=== PATIENT | male | born 1945 | race Caucasian/White ===

== ENCOUNTER → 2017-10-27 08:00 | Day surgery (SDC) | payer MEDICARE, OTHER, SELFPAY ==
[2017-10-27] VITALS (8 sets, daily range): BP systolic 105–123; BP diastolic 40–72; PULSE 52–57; RESP 14–16; TEMP 36.2–36.3; O2SAT 95–97; BMI 36.5
[2017-10-27] MEDS: SODIUM CHLORIDE 0.9% 1,000 ML 200 ML IV (09:10)
--- NOTE | 2017-10-27 09:37 | PM.HP.1 ---
History of Present Illness Chief complaint: colonoscopy [id number] Narrative: Ferdinand Schneider is a 71 year old male who presents today for a screening colonoscopy. He denies any problems or symptoms related to the function of his GI tract. He reports he needs a colonoscopy as part of a health maintenance program [facility] Surgical History History of tonsillectomy Social History household members: spouse Meds Home Medications Medication Instructions Recorded Confirmed Type amlodipine [Norvasc] 5 mg PO QDAY #0 11/05/10 10/27/17 History hydrochlorothiazide 25 mg PO QDAY #0 11/05/10 10/27/17 History Dulcolax Stool Softener (dss) mg PO DAILY PRN 10/27/17 History Fish Oil 500 mg PO DAILY 10/27/17 10/27/17 History Multi Vitamin mg PO DAILY 10/27/17 History aspirin 81 mg PO DAILY 10/27/17 10/27/17 History atorvastatin 40 mg PO DAILY 10/27/17 10/27/17 History oxybutynin chloride 5 mg PO DAILY 10/27/17 10/27/17 History terazosin 19 mg PO DAILY 10/27/17 10/27/17 History Generic Name Dose Route Start Last Admin Trade Name Freq PRN Reason Stop Dose Admin Sodium Chloride 1,000 mls @ 200 mls/hr 10/27/17 09:45 Normal Saline 0.9% IV CONT CHRISTOPHER Review of Systems Review of Systems All systems reviewed & are unremarkable except as noted in HPI and below Exam Vital Signs (past 8 hours): Vital Signs - 8 hr 10/27/17 08:18 Temperature 97.4 F L Pulse Rate 57 L Respiratory Rate 16 Blood Pressure 123/68 H Pulse Oximetry 96 Pulse Oximetry 96 Oxygen Delivery Method Room Air Narrative Exam Narrative: Very well nourished and well developed man in no distress HEENT: NCAT, PERRLA, EOMI Lungs: clear bilaterally CV: regular rate and rhythm Abd:soft, active bowel sounds Ext: warm and well perfused Assessment & Plan Plan: Plan: Very pleasant gentleman here for a screening colonoscopy. We have discussed the risks and benefits of the procedure and he has expressed a desire to continue
--- NOTE | 2017-10-27 09:42 | P.HP_ITS ---
History of Present Illness Chief complaint: colonoscopy [id number] Narrative: Ferdinand Schneider is a 71 year old male who presents today for a screening colonoscopy. He denies any problems or symptoms related to the function of his GI tract. He reports he needs a colonoscopy as part of a health maintenance program [facility] Surgical History History of tonsillectomy Social History household members: spouse Meds Home Medications Medication Instructions Recorded Confirmed Type amlodipine [Norvasc] 5 mg PO QDAY #0 11/05/10 10/27/17 History hydrochlorothiazide 25 mg PO QDAY #0 11/05/10 10/27/17 History Dulcolax Stool Softener (dss) mg PO DAILY PRN 10/27/17 History Fish Oil 500 mg PO DAILY 10/27/17 10/27/17 History Multi Vitamin mg PO DAILY 10/27/17 History aspirin 81 mg PO DAILY 10/27/17 10/27/17 History atorvastatin 40 mg PO DAILY 10/27/17 10/27/17 History oxybutynin chloride 5 mg PO DAILY 10/27/17 10/27/17 History terazosin 19 mg PO DAILY 10/27/17 10/27/17 History Generic Name Dose Route Start Last Admin Trade Name Freq PRN Reason Stop Dose Admin Sodium Chloride 1,000 mls @ 200 mls/hr 10/27/17 09:45 Normal Saline 0.9% IV CONT CHRISTOPHER Review of Systems Review of Systems All systems reviewed & are unremarkable except as noted in HPI and below Exam Vital Signs (past 8 hours): Vital Signs - 8 hr 3 10/27/17 08:18 Temperature 97.4 F L Pulse Rate 57 L Respiratory Rate 16 Blood Pressure 123/68 H Pulse Oximetry 96 Pulse Oximetry 96 Oxygen Delivery Method Room Air Narrative Exam Narrative: Very well nourished and well developed man in no distress HEENT: NCAT, PERRLA, EOMI Lungs: clear bilaterally CV: regular rate and rhythm Abd:soft, active bowel sounds Ext: warm and well perfused Assessment & Plan Plan: Plan: Very pleasant gentleman here for a screening colonoscopy. We have discussed the risks and benefits of the procedure and he has expressed a desire to continue
[2017-10-27] MEDS: fentaNYL 250 MCG/5 ML INJ IV (10:07)
[2017-10-27] MEDS: MIDAZOLAM 5 MG/5 ML VIAL IV (10:09)
--- NOTE | 2017-10-27 10:21 | P.OP_ITS ---
Operative Date/Time/Diagnoses - Date of procedure: 10/27/17 Time of procedure: 10:16 Pre-op diagnosis: Screening Post-op diagnosis: same Procedure & Clinicians Procedure: Colonoscopy to the cecum Same procedure as scheduled: Yes Indications: Last colonoscopy prior [facility] 10 years ago Surgeon: Paulina Dunne Anesthesia Type: Sedation (Versed 6 mg; fentanyl 200 mcg) Operative Notes Findings: 1. Very poor prep-solid and particulate matter throughout the colon 2. No obvious polyps or mass lesions 3. Diverticulosis affecting the sigmoid region 4. Very limited examination due to prep quality Closure Type: not applicable Specimen(s): none sent Procedure in detail: After obtaining informed consent, the patient was brought to the GI suite and placed in the left lateral decubitus position on the examination table. After placement of appropriate monitors, the patient was given incremental doses of Versed and Fentanyl until an appropriate level of sedation was achieved. A time out was held per SCOAP protocol. A digital rectal examination was performed and did not reveal any masses or obstructing lesions. The colonoscope was gently passed into the patient's anus and the entire colon navigated to the level of the cecum with minimal difficulty. Entering the colon, we immediately noted a very poor prep. The colon was filled with a mixture of solid particulate matter. Once in the cecum , the scope was withdrawn being sure to go before and beyond all mucosal folds and prominences and get the most adequate examination allowed considering prep quality. A large volume of irrigation fluid was used to try and remove some of the particulate matter with very limited success. The scope was obstructed multiple times with inability to either visualize the mucosa or aspirate aspirate the contents to improve the view. The findings are noted above. The scope was straightened and air aspirated from the colon. The instrument was removed from the patient's body and the procedure was concluded. The patient was allowed to awaken from sedation without difficulty and taken to the post-anesthesia care unit in good condition. Complications: none (Very limited examination due to poor prep quality) Condition: stable Disposition: PACU Plan for aftercare: 1. Discharged to home 2. Plan for next colonoscopy in 1-3 years due to the very poor quality of the prep. Serious consideration should be given to stacked preps for the next planned procedure
== END | disposition home or self-care (01) ==
PROVIDERS: Family Provider Internal Medicine; PCP Internal Medicine; Visit Provider Surgery
PROC: 0DJD8ZZ Inspection of Lower Intestinal Tract, Via Natural or Artificial Opening Endoscopic (ICD-10-PCS; CPT 45378; principal; 2017-10-27 08:45)
DX: Z12.11 Encounter for screening for malignant neoplasm of colon (principal); K57.30 Diverticulosis of large intestine without perforation or abscess without bleeding
CPT/HCPCS: G0121; J2250; J3010

== ENCOUNTER → 2018-01-24 07:51 | Outpatient (CLI) | payer MEDICARE, OTHER, SELFPAY ==
[2018-01-24 09:21] LABS: Aspartate Aminotransferase 21 IU/L (17-59); BUN Creatinine Ratio 22.2 (6-22); Blood Urea Nitrogen 20 mg/dL (9-20); Calcium 9.4 mg/dL (8.4-10.2); Carbon Dioxide 27 mmol/L (22-32); Chloride 101 mmol/L (98-107); Cholesterol 168 mg/dL (140-199); Estimated Glomerular Filt Rate > 60.0 mL/min (>60); Glucose 118 mg/dL (80-110); HDL Cholesterol 37 mg/dL (40-60); HEMOLYSIS < 15 (0-50); LDL Cholesterol Calculated 104 mg/dL (<100); Potassium 3.9 mmol/L (3.4-5.1); Sodium 137 mmol/L (137-145); Triglycerides 136 mg/dL (35-150)
== END ==
PROVIDERS: Family Provider Internal Medicine; PCP Internal Medicine; Visit Provider Internal Medicine
DX: E78.00 Pure hypercholesterolemia, unspecified (principal); I10 Essential (primary) hypertension; N40.0 Benign prostatic hyperplasia without lower urinary tract symptoms
CPT/HCPCS: 36415; 80048; 80061; 84153; 84450

== ENCOUNTER → 2018-05-30 14:13 | Outpatient (REF) | payer MEDICARE, OTHER, SELFPAY | LOC: LAB 14:13 | PROVIDERS: Family Provider Internal Medicine; PCP Internal Medicine; Visit Provider Internal Medicine | DX: B35.1 Tinea unguium (principal) | CPT/HCPCS: 87077; 87102 ==

== ENCOUNTER 2018-06-30 04:52 | Emergency (ER) | payer MEDICARE, OTHER, SELFPAY ==
[2018-06-30 05:00] VITALS: BP 163/73; PULSE 76; RESP 20; TEMP 36.4; O2SAT 96; BMI 35.4
[2018-06-30] MEDS: PHENAZOPYRIDINE 100 MG PREPACK 1 BOTTLE MISC (05:37)
[2018-06-30 06:03] VITALS: BP 129/65; PULSE 60; RESP 18; O2SAT 98
--- NOTE | 2018-06-30 06:06 | PC.NURSE ---
His watters is draining wine colored drainage without clots.
--- NOTE | 2018-06-30 16:33 | ED_ITS ---
HPI - Male Genitourinary General Chief complaint: Urogenital-Male Stated complaint: has procedure yesterday, unable to urinate pain Time Seen by Provider: 06/30/18 04:56 Source: patient and family Mode of arrival: ambulatory Limitations: no limitations History of Present Illness HPI Narrative: Patient comes to the emergency department complaining of urinary retention. He states he had an outpatient urologic procedure today which his daughter describes as a uro lift , in which she states a titanium clips were used to pull the prostate back away from the bladder. The procedure was apparently trans urethral. The patient states he has had pain with urination all day, and his Vicodin is not helping. He states that he was passing some clots and that he was given straight caths to use if needed, but that he has not used them yet. Patient states that around 2100, he stopped being able to urinate on his own, and has had increasing bladder discomfort since. He states that when he tries to urinate, the discomfort is actually in his urethral area. Patient has had some mild hematuria with mild clotting. He denies any fever, nausea, lightheadedness, or any other complaints. He states that other than his bladder discomfort from being full, he has not had any abdominal pain. He is scheduled to see his urologist for recheck later this morning. The patient states his pain is 8/10. Nothing makes better or worse. Related Data Home Medications Medication Instructions Recorded Confirmed amlodipine [Norvasc] 5 mg PO QDAY #0 11/05/10 10/27/17 hydrochlorothiazide 25 mg PO QDAY #0 11/05/10 10/27/17 Dulcolax Stool Softener (dss) mg PO DAILY PRN 10/27/17 Fish Oil 500 mg PO DAILY 10/27/17 10/27/17 Multi Vitamin mg PO DAILY 10/27/17 aspirin 81 mg PO DAILY 10/27/17 10/27/17 atorvastatin 40 mg PO DAILY 10/27/17 10/27/17 oxybutynin chloride 5 mg PO DAILY 10/27/17 10/27/17 terazosin 19 mg PO DAILY 10/27/17 10/27/17 Allergies Allergy/AdvReac Type Severity Reaction Status Date / Time No Known Drug Allergies Allergy Verified 06/30/18 05:29 Review of Systems Review of Systems ROS Unobtainable: All systems reviewed & are unremarkable except as noted in HPI and below Constitutional Denies chills, Denies fever(s), Denies lethargy and Denies weakness Eyes Denies change in vision, Denies eye discharge, Denies irritation and Denies loss of vision ENT Ears, Nose, Mouth, and Throat: Denies change in voice, Denies neck pain and Denies sore throat Cardiovascular Denies chest pain, Denies irregular heart rhythm, Denies lightheadedness, Denies palpitations, Denies dyspnea, Denies dyspnea on exertion and Denies orthopnea Respiratory Denies cough, Denies dyspnea, Denies dyspnea on exertion and Denies wheezing Gastrointestinal Gastrointestinal: Denies abdominal pain, Denies change in bowel habits, Denies diarrhea, Denies nausea and Denies vomiting Genitourinary Denies hematuria, Denies flank pain, Denies urinary incontinence and Denies urinary urgency Musculoskeletal Denies neck pain Integumentary/Breasts Denies pruritus, Denies erythema, Denies rash and Denies wounds Neurologic Denies confusion, Denies loss of vision and Denies weakness Psychiatric Denies anxiety, Denies confusion, Denies depression, Denies homicidal ideation and Denies suicidal ideation Endocrine Denies palpitations Hematologic/Lymphatic Denies easy bruising Allergic/Immunologic Denies wheezing [facility] Medical History Acute retention of urine (Acute) Surgical History History of tonsillectomy Social History household members: spouse Smoking Status: Never smoker Comment: Under surgical history, trans urethral Uro lift. Exam Initial Vital Signs Initial Vital Signs: Vital Signs Temperature 97.6 F 06/30/18 05:00 Pulse Rate 76 06/30/18 05:00 Respiratory Rate 20 06/30/18 05:00 Blood Pressure 163/73 H 06/30/18 05:00 Pulse Oximetry 96 06/30/18 05:00 Course Course Narrative: Bladder scan showed patient to have 550 cc of urine in his bladder. The patient stated he prefer the idea of an indwelling catheter over straight cath, which I feel is also best. Indwelling Paniagua was placed, and I discussed with the patient and his daughter, who is a nurse, that if the tubing gets clogged with any clots, they can flush the catheter. Patient should keep the catheter in until he sees his urologist later this morning, and a plan can be devised at that time. Orders Ordered: Discontinued Medications Phenazopyridine HCl (Pyridium) 200 mg PO NOW ONE Stop: 06/30/18 05:26 Phenazopyridine HCl (Pyridium 100mg Prepack) 1 bottle MISC SEEINSTR ONE Stop: 06/30/18 05:32 Last Admin: 06/30/18 05:37 Dose: 1 bottle MDM - Male Genitourinary Medical Records Attestation: I reviewed the patient's medical records. Discharge Plan Departure Patient Disposition: Home Clinical Impression: Acute retention of urine Discharge Date/Time: 06/30/18 06:07 Interventions: ED Discharge Assessment Last Done: 06/30/18 06:03 Instructions: DI for Urinary Retention in Men Activity Restrictions/Additional Instructions: Please follow up for your appointment with your urologist today, as scheduled. Prescriptions: No Action amlodipine [Norvasc] 5 MG tablet 5 mg PO QDAY Qty: 0 RF: 0 hydrochlorothiazide 25 MG tablet 25 mg PO QDAY Qty: 0 RF: 0 Dulcolax Stool Softener (dss) PO DAILY PRN (Reason: Constipation) RF: 0 Fish Oil 500 mg PO DAILY RF: 0 Multi Vitamin PO DAILY RF: 0 aspirin 81 mg PO DAILY RF: 0 atorvastatin 40 mg PO DAILY RF: 0 oxybutynin chloride 5 mg PO DAILY RF: 0 terazosin 19 mg PO DAILY RF: 0
== END 2018-06-30 06:07 | disposition home or self-care (01) ==
PROVIDERS: Emergency Provider Emergency Medicine; Family Provider Internal Medicine; PCP Internal Medicine
DX: R33.9 Retention of urine, unspecified (principal)
CPT/HCPCS: 51701; 51798; 99283

== ENCOUNTER 2018-06-30 14:57 | Emergency (ER) | payer MEDICARE, OTHER, SELFPAY ==
[2018-06-30 15:05] VITALS: BP 163/70; PULSE 82; RESP 16; TEMP 36.5; O2SAT 98; BMI 35.4
--- NOTE | 2018-06-30 15:38 | ED.MALEGU ---
HPI - Male Genitourinary General Chief complaint: Urogenital-Male Stated complaint: PLUGGED CATH Time Seen by Provider: 06/30/18 15:06 Source: patient and family Mode of arrival: ambulatory Limitations: no limitations History of Present Illness HPI Narrative: 72-year-old male with hypertension and hyperlipidemia as well as prostate trouble returns to the emergency department for evaluation of a problem with his Paniagua catheter. He presents with his daughter who is a nurse. Just yesterday the patient had a urologic procedure and was discharged without a catheter. He presented last evening with difficulty to urinate and a bladder scan noting over 500 mL in the bladder. He had a Paniagua catheter placed and was discharged home. He had an appointment with his urologist today and all was well. Over the course of the day they have noticed a decreased amount of urine out the Paniagua catheter. There has been passage of small clots. The patient is not dizzy nor weak or lightheaded. He denies fever or chills. He denies any significant pain. Onset (ago): hour(s) Duration: constant Related Data Home Medications Medication Instructions Recorded Confirmed amlodipine [Norvasc] 5 mg PO QDAY #0 11/05/10 10/27/17 hydrochlorothiazide 25 mg PO QDAY #0 11/05/10 10/27/17 Dulcolax Stool Softener (dss) mg PO DAILY PRN 10/27/17 Fish Oil 500 mg PO DAILY 10/27/17 10/27/17 Multi Vitamin mg PO DAILY 10/27/17 aspirin 81 mg PO DAILY 10/27/17 10/27/17 atorvastatin 40 mg PO DAILY 10/27/17 10/27/17 oxybutynin chloride 5 mg PO DAILY 10/27/17 10/27/17 terazosin 19 mg PO DAILY 10/27/17 10/27/17 Allergies Allergy/AdvReac Type Severity Reaction Status Date / Time No Known Drug Allergies Allergy Verified 06/30/18 05:29 Review of Systems Constitutional Denies chills, Denies fever(s), Denies lethargy and Denies weakness Eyes Denies change in vision, Denies eye discharge, Denies irritation and Denies loss of vision ENT Ears, Nose, Mouth, and Throat: Denies change in voice, Denies neck pain and Denies sore throat Cardiovascular Denies chest pain, Denies irregular heart rhythm, Denies lightheadedness, Denies palpitations, Denies dyspnea, Denies dyspnea on exertion and Denies orthopnea Respiratory Denies cough, Denies dyspnea, Denies dyspnea on exertion and Denies wheezing Gastrointestinal Gastrointestinal: Denies abdominal pain, Denies change in bowel habits, Denies diarrhea, Denies nausea and Denies vomiting Genitourinary Denies hematuria, Denies flank pain, Denies urinary incontinence and Denies urinary urgency Comments: Paniagua catheter problem Musculoskeletal Denies neck pain Integumentary/Breasts Denies pruritus, Denies erythema, Denies rash and Denies wounds Neurologic Denies confusion, Denies loss of vision and Denies weakness Psychiatric Denies anxiety, Denies confusion, Denies depression, Denies homicidal ideation and Denies suicidal ideation Endocrine Denies palpitations Hematologic/Lymphatic Denies easy bruising Allergic/Immunologic Denies wheezing [facility] Medical History Acute retention of urine (Acute) Surgical History History of tonsillectomy Social History household members: spouse Smoking Status: Never smoker Exam Narrative Exam Narrative: GEN: AOx3 and in mild distress EYES: Pupils are equal, round, and reactive to light and accommodation. Extraoccular muscles are intact bilaterally. There is no subconjunctival hemorrhage or exudate. CHEST: Lungs are clear to auscultation bilaterally and free of wheezes, rales, or rhonchi. Heart rate is regular rhythm, there are no murmurs, clicks, rubs, or gallops. There is no chest wall tenderness. ABD: Abdomen is soft and nontender. There is no guarding or rebound. Bowel sounds are normal in all 4 quadrants. There is no mass or organomegaly. EXT: Full painless ROM of all extremities with no loss of sensation or strength. : Paniagua catheter in place, blood tinged urine in the Paniagua. SKIN: Warm, pink, and dry. No erythema or rash Initial Vital Signs Initial Vital Signs: Vital Signs Temperature 97.7 F 06/30/18 15:05 Pulse Rate 82 06/30/18 15:05 Respiratory Rate 16 06/30/18 15:05 Blood Pressure 163/70 H 06/30/18 15:05 Pulse Oximetry 98 06/30/18 15:05 Course Reevaluation(s) Reevaluation #1: Nursing flushed the catheter and promptly had a few clots passed through the Paniagua and started draining. Patient tolerated procedure well Vital Signs - 8 hr 06/30/18 15:05 Temperature 97.7 F Pulse Rate 82 Respiratory Rate 16 Blood Pressure 163/70 H Pulse Oximetry 98 Discharge Plan Departure Patient Disposition: Home Clinical Impression: Paniagua catheter problem Discharge Date/Time: 06/30/18 16:08 Interventions: ED Discharge Assessment Last Done: 06/30/18 16:03 Instructions: How to Care for Your Paniagua Catheter -- Male Activity Restrictions/Additional Instructions: *You have been diagnosed with [ Paniagua catheter problem ] *What to do: * continue to take medications as directed *Follow up with your primary care provider in 2-3 days, call for an appointment. Let them know you were seen in the Emergency Department and that we ask that you be seen in follow up *Return to ER if you should have any new, worsening or concerning symptoms Prescriptions: No Action amlodipine [Norvasc] 5 MG tablet 5 mg PO QDAY Qty: 0 RF: 0 hydrochlorothiazide 25 MG tablet 25 mg PO QDAY Qty: 0 RF: 0 Dulcolax Stool Softener (dss) PO DAILY PRN (Reason: Constipation) RF: 0 Fish Oil 500 mg PO DAILY RF: 0 Multi Vitamin PO DAILY RF: 0 aspirin 81 mg PO DAILY RF: 0 atorvastatin 40 mg PO DAILY RF: 0 oxybutynin chloride 5 mg PO DAILY RF: 0 terazosin 19 mg PO DAILY RF: 0
== END 2018-06-30 16:08 | disposition home or self-care (01) ==
PROVIDERS: Emergency Provider Emergency Medicine; Family Provider Internal Medicine; PCP Internal Medicine
DX: T83.091A Other mechanical complication of indwelling urethral catheter, initial encounter (principal)
CPT/HCPCS: 51700; 51701; 51798; 99283; 99284

== ENCOUNTER 2018-07-01 21:32 | Emergency (ER) | payer MEDICARE, OTHER, SELFPAY ==
[2018-07-01 22:17] VITALS: BP 158/71; PULSE 61; RESP 18; TEMP 36.2; O2SAT 98; BMI 35.4
--- NOTE | 2018-07-01 22:34 | ED.MALEGU ---
HPI - Male Genitourinary General Chief complaint: Urogenital-Male Stated complaint: cath is blocked Time Seen by Provider: 07/01/18 22:21 Source: patient Mode of arrival: ambulatory Limitations: no limitations History of Present Illness HPI Narrative: patient is a 72-year-old male who presents with catheter problem he had a Paniagua catheter placed yesterday after a prostate procedure. This evening he noticed he was having increased abdominal pain is decreased urine output. He did have some urine leakage around the Paniagua. The of the nurse has already unclog it and got an old is all blood clots removed from the catheter. Urine is yellow and clear no hematuria. He has not had any fever. He has appointment with Urology next week. Related Data Home Medications Medication Instructions Recorded Confirmed amlodipine [Norvasc] 5 mg PO QDAY #0 11/05/10 10/27/17 hydrochlorothiazide 25 mg PO QDAY #0 11/05/10 10/27/17 Dulcolax Stool Softener (dss) mg PO DAILY PRN 10/27/17 Fish Oil 500 mg PO DAILY 10/27/17 10/27/17 Multi Vitamin mg PO DAILY 10/27/17 aspirin 81 mg PO DAILY 10/27/17 10/27/17 atorvastatin 40 mg PO DAILY 10/27/17 10/27/17 oxybutynin chloride 5 mg PO DAILY 10/27/17 10/27/17 terazosin 19 mg PO DAILY 10/27/17 10/27/17 Allergies Allergy/AdvReac Type Severity Reaction Status Date / Time No Known Drug Allergies Allergy Verified 06/30/18 05:29 Review of Systems Review of Systems GENERAL: Denies chills,fever HEENT: Denies throat pain RESPIRATORY: Denies dyspnea, cough, wheezing CARDIOVASCULAR: Denies chest pain, palpitations : See HPI GASTROINTESTINAL: Denies nausea, vomiting MUSCULOSKELETAL: Denies extremity pain, injury SKIN: No rash, no laceration, no pruritus NEUROLOGIC: Denies weakness, dizziness, headache, numbness 8 point review of systems is negative except for those stated above and HPI PFSH Medical History Acute retention of urine (Acute) Hyperlipidemia (Acute) Hypertension (Acute) Surgical History History of tonsillectomy Social History household members: spouse Smoking Status: Never smoker Exam Initial Vital Signs Initial Vital Signs: Vital Signs Temperature 97.2 F L 07/01/18 22:17 Pulse Rate 61 07/01/18 22:17 Respiratory Rate 18 07/01/18 22:17 Blood Pressure 158/71 H 07/01/18 22:17 Pulse Oximetry 98 07/01/18 22:17 GENERAL: alert male no acute distress CARDIOVASCULAR: peripheral pulses in tact, cap refill <2 sec RESPIRATORY: No respiratory distress, speaks in full sentences without difficulty ABDOMEN: Soft, nontender, no guarding or rebound : Paniagua in place tube is clear yellow urine EXTREMITIES: Normal range of motion, no clubbing or edema. Neurovascularly intact NEUROLOGICAL: Cranial nerves II through XII grossly intact. Normal gait and speech. SKIN: Warm, dry, no petechiae, no rashes or lesions. Course Vital Signs - 8 hr 07/01/18 22:17 Temperature 97.2 F L Pulse Rate 61 Respiratory Rate 18 Blood Pressure 158/71 H Pulse Oximetry 98 Discharge Plan Departure Patient Disposition: Home Clinical Impression: Paniagua catheter problem Discharge Date/Time: 07/01/18 22:42 Interventions: ED Discharge Assessment Last Done: 07/01/18 22:42 Instructions: How to Care for Your Paniagua Catheter -- Male Activity Restrictions/Additional Instructions: *You have been diagnosed with Paniagua catheter problem *What to do: may flush out at home. If unable to flush and clear Paniagua catheter than return to ED. *Continue to take medications as directed *Follow up with your primary care provider in 2-3 days, Follow up with Urology as previously arranged for next week *Return to ER if you should have gross blood in the Paniagua catheter tube, unable to fix Paniagua catheter at home, increased abdominal pain [or] any new, worsening or concerning symptoms Prescriptions: No Action amlodipine [Norvasc] 5 MG tablet 5 mg PO QDAY Qty: 0 RF: 0 hydrochlorothiazide 25 MG tablet 25 mg PO QDAY Qty: 0 RF: 0 Dulcolax Stool Softener (dss) PO DAILY PRN (Reason: Constipation) RF: 0 Fish Oil 500 mg PO DAILY RF: 0 Multi Vitamin PO DAILY RF: 0 aspirin 81 mg PO DAILY RF: 0 atorvastatin 40 mg PO DAILY RF: 0 oxybutynin chloride 5 mg PO DAILY RF: 0 terazosin 19 mg PO DAILY RF: 0 Referrals: Ezio Hallman MD [Primary Care Provider] -
--- NOTE | 2018-07-01 22:41 | PC.NURSE ---
Pt bladder irrigated on arrival and easily flushed out multiple small brownish clots. No ray blood. pt had 250 out.
== END 2018-07-01 22:42 | disposition home or self-care (01) ==
PROVIDERS: Emergency Provider Emergency Medicine; Family Provider Internal Medicine; PCP Internal Medicine
DX: T83.091A Other mechanical complication of indwelling urethral catheter, initial encounter (principal)
CPT/HCPCS: 99282

== ENCOUNTER 2020-03-16 18:21 | Emergency (ER) | payer MEDICARE, OTHER, SELFPAY ==
[2020-03-16 18:27] VITALS: BP 195/84; PULSE 69; RESP 16; TEMP 36.8; O2SAT 98
--- NOTE | 2020-03-16 18:43 | ED_ITS ---
HPI - Wound/Laceration <VILLA De Dios - Last Filed: 03/16/20 20:16> General Chief Complaint: Wound/Laceration Stated Complaint: Cut Right Thumb Time Seen by Provider: 03/16/20 18:22 Source: patient Mode of arrival: Ambulatory History of Present Illness HPI narrative: 74yo male presents to the ED for a laceration to his right thumb. He states he was attempting to cut a care in the next slipped and he cut his thumb. He is unsure of his last Tdap. He denies any other injuries, able to move his thumb without any difficulty. Patient denies any other injury, fevers, chills, nausea, vomiting, diarrhea, or other concerns. Related Data Home Medications Medication Instructions Recorded Confirmed amlodipine [Norvasc] 5 mg PO QDAY #0 11/05/10 10/27/17 hydrochlorothiazide 25 mg PO QDAY #0 11/05/10 10/27/17 Dulcolax Stool Softener (dss) mg PO DAILY PRN 10/27/17 Fish Oil 500 mg PO DAILY 10/27/17 10/27/17 Multi Vitamin mg PO DAILY 10/27/17 aspirin 81 mg PO DAILY 10/27/17 10/27/17 atorvastatin 40 mg PO DAILY 10/27/17 10/27/17 oxybutynin chloride 5 mg PO DAILY 10/27/17 10/27/17 terazosin 19 mg PO DAILY 10/27/17 10/27/17 Allergies Allergy/AdvReac Type Severity Reaction Status Date / Time No Known Drug Allergies Allergy Verified 06/30/18 05:29 Review of Systems <VILLA De Dios - Last Filed: 03/16/20 20:16> Review of Systems Narrative: REVIEW OF SYSTEMS: GENERAL: Denies fever or chills. HENT: Denies head trauma. EYE: Denies double vision or vision loss. CARDIOVASCULAR: Denies syncope. MUSCULOSKELETAL: Denies weakness, or deformities. INTEGUMENTARY: Complains of right thumb laceration, see HPI. NEURO: Denies numbness or tingling. Patient History <VILLA De Dios - Last Filed: 03/16/20 20:16> Medical History Acute retention of urine (Inactive) Hyperlipidemia (Acute) Hypertension (Acute) Surgical History History of tonsillectomy Social History household members: spouse Smoking Status: Never smoker Smoking Status: Never smoker alcohol intake frequency: a few times a month Substance Use Type: does not use Exam <VILLA De Dios - Last Filed: 03/16/20 20:16> Initial Vital Signs Initial Vital Signs: Vital Signs Temperature 98.2 F 03/16/20 18:27 Pulse Rate 69 03/16/20 18:27 Respiratory Rate 16 03/16/20 18:27 Blood Pressure 195/84 H 03/16/20 18:27 Pulse Oximetry 98 03/16/20 18:27 PHYSICAL EXAMINATION: GENERAL: Well groomed, alert, and cooperative. Answers questions promptly and appropriately. Vital signs noted. HENT: Normocephalic, atraumatic. RESPIRATORY: Normal respiratory rate, trachea midline, airway patent. No stridor, nasal flaring or accessory muscle use. MUSCULOSKELETAL: Normal gait and coordination. Equal tone and mass bilaterally. EXTREMITIES: CMS intact. Moves all extremities. SKIN: Warm, dry, soft, appropriate color for ethnicity. There is a 8 cm laceration noted to right tip of thumb starting at the nail edge and extending down towards the DIP joint. Full range of motion of thumb against resistance, no visualized tendons, no visualized foreign bodies. Laceration appears to be more like a flap. Sutures in place, see procedure note. NEURO: Alert and Oriented X 3. Good coordination. PSYCH: Appropriate affect and mood. <Zach Lee DO - Last Filed: 03/17/20 03:48> Initial Vital Signs Initial Vital Signs: Vital Signs Temperature 98.2 F 03/16/20 18:27 Pulse Rate 69 03/16/20 18:27 Respiratory Rate 16 03/16/20 18:27 Blood Pressure 195/84 H 03/16/20 18:27 Pulse Oximetry 98 03/16/20 18:27 Procedures <VILLA De Dios - Last Filed: 03/16/20 20:16> Laceration Repair Laceration 1: Site: upper extremity Side (If applicable): right Size (cm): 8 Description: linear Depth: simple, single layer Local Anesthetic: lidocaine 1% and with bicarb Amount of anesthesia used (mL): 8 Skin layer closed with: nylon Course <VILLA De Dios - Last Filed: 03/16/20 20:16> Course Course Narrative: Tdap updated. Patient tolerated procedure well, wound irrigated extensively with NS. Orders Ordered: Discontinued Medications Bacitracin (Bacitracin) 1 applic TOP NOW ONE Stop: 03/16/20 19:17 Last Admin: 03/16/20 19:30 Dose: 1 applic Documented by: KELVIN Diphtheria/Tetanus/Acell Pertussis (Adacel) 0.5 ml IM .ONCE ONE Stop: 03/16/20 18:41 Last Admin: 03/16/20 18:45 Dose: 0.5 ml Documented by: BRITNEY Lidocaine/Sodium Bicarbonate (Buffered Lidocaine 10 Ml Syr) 10 ml INJ NOW ONE Stop: 03/16/20 18:41 Last Admin: 03/16/20 18:45 Dose: 10 ml Documented by: BRITNEY Vital Signs Vital signs: Vital Signs - 8 hr 03/16/20 18:27 03/16/20 19:34 Temperature 98.2 F Pulse Rate 69 72 Respiratory Rate 16 18 Blood Pressure 195/84 H 174/81 H Pulse Oximetry 98 97 <Zach Lee DO - Last Filed: 03/17/20 03:48> Orders Ordered: Discontinued Medications Bacitracin (Bacitracin) 1 applic TOP NOW ONE Stop: 03/16/20 19:17 Last Admin: 03/16/20 19:30 Dose: 1 applic Documented by: KELVIN Diphtheria/Tetanus/Acell Pertussis (Adacel) 0.5 ml IM .ONCE ONE Stop: 03/16/20 18:41 Last Admin: 03/16/20 18:45 Dose: 0.5 ml Documented by: BRITNEY Lidocaine/Sodium Bicarbonate (Buffered Lidocaine 10 Ml Syr) 10 ml INJ NOW ONE Stop: 03/16/20 18:41 Last Admin: 03/16/20 18:45 Dose: 10 ml Documented by: BRITNEY Vital Signs Vital signs: Vital Signs - 8 hr 03/16/20 18:27 03/16/20 19:34 Temperature 98.2 F Pulse Rate 69 72 Respiratory Rate 16 18 Blood Pressure 195/84 H 174/81 H Pulse Oximetry 98 97 MDM - Wound/Laceration <HOLLY De DiosP - Last Filed: 03/16/20 20:16> Medical Records Attestation: I reviewed the patient's medical records. Lab Data Attestation: I reviewed the patient's lab results. [facility] Narrative Medical decision making narrative: History and examination reveal simple laceration requiring sutures. Patient tolerated sutures well, flap is well approximated. Patient's Tdap was updated. No signs of infection. No concerns for tendon involvement due to location of laceration and strength against resistance. No nail involvement. Patient was counseled about signs of infection, care for wound, and suture removal. He agrees to plan of care verbalized understanding. Discharge Plan Departure Patient Disposition: Home Clinical Impression: Laceration Discharge Date/Time: 03/16/20 19:35 Instructions: DI for Laceration Repair Activity Restrictions/Additional Instructions: Thank you for entrusting me with your care today. As discussed, your laceration was repaired with 9 sutures. These will need to be removed in approximately 10 days. Do not soak your hand in any water including dishwater. Leave the bandage in place for the next 24 hours, after that you may remove the bandage and wash the area gently with soap and water. No foreign bodies were found in your wound today. While there is low-risk for infection at this time, retained foreign bodies and infection are always possible with any cut or break in the skin. Please monitor the wound closely and be re-evaluated immediately if you develop any signs of infection such as pus, increasing redness, increasing pain, fevers, or any other concerns. Your Tdap was updated today. Prescriptions: No Action amlodipine [Norvasc] 5 MG tablet 5 mg PO QDAY Qty: 0 RF: 0 hydrochlorothiazide 25 MG tablet 25 mg PO QDAY Qty: 0 RF: 0 Dulcolax Stool Softener (dss) PO DAILY PRN (Reason: Constipation) RF: 0 Fish Oil 500 mg PO DAILY RF: 0 Multi Vitamin PO DAILY RF: 0 aspirin 81 mg PO DAILY RF: 0 atorvastatin 40 mg PO DAILY RF: 0 oxybutynin chloride 5 mg PO DAILY RF: 0 terazosin 19 mg PO DAILY RF: 0 Referrals: Ezio Hallman MD [Primary Care Provider] - <Zach Lee DO - Last Filed: 03/17/20 03:48> Cosign ED Attending Cosignature Attestation: I was immediately available in the department for consultation. This documentation has been reviewed and I agree with assessment and plan. Supervised by Zach Lee,
[2020-03-16] MEDS: LIDO 1%/SOD BICARB 8.4% (10ML) 10 ML SYRINGE INJ (18:45)
[2020-03-16] MEDS: TET,DIPH,PERTUSS(ACELL),VAC/PF 0.5 ML SYRINGE IM (18:45)
[2020-03-16] MEDS: BACITRACIN OINT 0.9 GM PCKT 1 APPLIC TOP (19:30)
[2020-03-16 19:34] VITALS: BP 174/81; PULSE 72; RESP 18; O2SAT 97
== END 2020-03-16 19:35 | disposition home or self-care (01) ==
PROVIDERS: Emergency Provider Nurse Practitioner; Family Provider Internal Medicine; PCP Internal Medicine
DX: S61.011A Laceration without foreign body of right thumb without damage to nail, initial encounter (principal); W26.0XXA Contact with knife, initial encounter; Z23 Encounter for immunization
CPT/HCPCS: 12004; 90471; 99283; 90715

== ENCOUNTER → 2020-04-22 15:40 | Outpatient (ROUT) | payer MEDICARE, OTHER, SELFPAY ==
[2020-04-22 16:03] LABS: Aspartate Aminotransferase 31 IU/L (17-59); BUN Creatinine Ratio 27.3 (6-22); Blood Urea Nitrogen 21 mg/dL (9-20); Calcium 9.8 mg/dL (8.4-10.2); Carbon Dioxide 30 mmol/L (22-32); Chloride 99 mmol/L (98-107); Cholesterol 179 mg/dL (140-199); Estimated Glomerular Filt Rate > 60.0 mL/min (>60); Glucose 120 mg/dL (80-110); HDL Cholesterol 43 mg/dL (40-60); HEMOLYSIS 32 (0-50); LDL Cholesterol Calculated 104 mg/dL (<100); Potassium 4.3 mmol/L (3.4-5.1); Sodium 137 mmol/L (137-145); Triglycerides 161 mg/dL (35-150)
[2020-04-22 16:33] LABS: Prostate Specific Antigen 1.07 ng/mL (0.10-4.00)
== END ==
PROVIDERS: Family Provider Internal Medicine; PCP Internal Medicine; Visit Provider Internal Medicine
DX: I10 Essential (primary) hypertension (principal); E78.2 Mixed hyperlipidemia; N40.0 Benign prostatic hyperplasia without lower urinary tract symptoms
CPT/HCPCS: 80048; 80061; 84153; 84450

== ENCOUNTER → 2020-08-21 09:58 | Outpatient (CLI) | payer MEDICARE, OTHER, SELFPAY ==
[2020-08-21] MEDS: COVID-19 VACC, Ad26(JANSSEN)/PF 0.5 ML IM (10:04)
== END ==
PROVIDERS: Family Provider Internal Medicine; PCP Internal Medicine; Visit Provider Internal Medicine
DX: Z23 Encounter for immunization (principal)
CPT/HCPCS: 0031A; 91303

== ENCOUNTER → 2020-10-02 14:37 | Outpatient (ROUT) | payer MEDICARE, OTHER, SELFPAY ==
[2020-10-02 15:20] LABS: Blood Urea Nitrogen 16 mg/dL (9-20); Calcium 9.9 mg/dL (8.4-10.2); Carbon Dioxide 25 mmol/L (22-32); Chloride 104 mmol/L (98-107); Estimated Glomerular Filt Rate > 60.0 mL/min (>60); Glucose 98 mg/dL (80-110); HEMOLYSIS < 15 (0-50); Potassium 4.3 mmol/L (3.4-5.1); Sodium 137 mmol/L (137-145)
== END ==
PROVIDERS: Family Provider Internal Medicine; PCP Internal Medicine; Visit Provider Internal Medicine
DX: I10 Essential (primary) hypertension (principal)
CPT/HCPCS: 80048

== ENCOUNTER → 2021-09-25 06:58 | Outpatient (CLI) | payer MEDICARE, OTHER, SELFPAY ==
[2021-09-25 07:57] LABS: Add Manual Diff / Slide Review NO; Basophils Absolute Auto 0 /uL (0-100); Basophils Percent Auto 0.5 % (0-2); Eosinophils Absolute Auto 300 /uL (0-450); Eosinophils Percent Auto 2.8 % (2-4); Hematocrit 42.1 % (41-53); Hemoglobin 14.1 g/dL (13.5-17.5); Lymphocytes Absolute Auto 3600 /uL (1100-4500); Lymphocytes Percent Auto 35.6 % (25-40); Mean Corpuscular HGB Conc 33.6 % (30-36); Mean Corpuscular Hemoglobin 29.9 PG (26-34); Monocytes Absolute Auto 900 /uL (0-900); Neutrophils Absolute Auto 5300 /uL (1500-7000); Neutrophils Percent Auto 52.1 % (50-75); Platelet Count 205 X10^3/uL (150-400); Red Blood Cell Count 4.73 X10^6/uL (4.5-5.9); Red Cell Distribution Width 13.2 % (11.6-14.8); White Blood Cell Count 10.2 X10^3/uL (4.5-11.0)
[2021-09-25 08:21] LABS: Alanine Aminotransferase 38 IU/L (<50); Albumin 4.3 g/dL (3.5-5.0); Albumin Globulin Ratio 1.7 (1.0-2.8); Alkaline Phosphatase 56 U/L (38-126); Aspartate Aminotransferase 28 IU/L (17-59); BUN Creatinine Ratio 19.8 (6-22); Bilirubin Total 0.6 mg/dL (0.2-1.3); Blood Urea Nitrogen 20 mg/dL (9-20); Calcium 9.6 mg/dL (8.4-10.2); Carbon Dioxide 25 mmol/L (22-32); Chloride 104 mmol/L (98-107); Cholesterol 187 mg/dL (140-199); Estimated Glomerular Filt Rate > 60 mL/min (>60); Globulin 2.6 g/dL (1.7-4.1); Glucose 100 mg/dL (80-110); HDL Cholesterol 45 mg/dL (40-60); HEMOLYSIS < 15 (0-50); LDL Cholesterol Calculated 114 mg/dL (<100); Potassium 4.9 mmol/L (3.4-5.1); Sodium 137 mmol/L (137-145); Total Protein 6.9 g/dL (6.3-8.2); Triglycerides 141 mg/dL (35-150)
[2021-09-25 08:52] LABS: Prostate Specific Antigen 1.73 ng/mL (0.10-4.00)
[2021-09-25 08:54] LABS: TSH w/ Reflex to FT4 3.93 uIU/mL (0.47-4.68)
== END ==
PROVIDERS: Family Provider Internal Medicine; PCP Internal Medicine; Referring Provider Internal Medicine; Visit Provider Internal Medicine
DX: E78.2 Mixed hyperlipidemia (principal); N40.1 Benign prostatic hyperplasia with lower urinary tract symptoms; I10 Essential (primary) hypertension; N13.8 Other obstructive and reflux uropathy
CPT/HCPCS: 36415; 80053; 80061; 84153; 84443; 85025

== ENCOUNTER → 2022-03-10 13:31 | Outpatient (CLI) | payer MEDICARE, OTHER, SELFPAY ==
[2022-03-10 16:31] LABS: COVID19 -Nasal RAPID Negative (Negative)
== END ==
PROVIDERS: Family Provider Internal Medicine; PCP Internal Medicine; Visit Provider Surgery
DX: Z20.822 Contact with and (suspected) exposure to COVID-19 (principal); Z01.812 Encounter for preprocedural laboratory examination
CPT/HCPCS: 87635; C9803

== ENCOUNTER 2022-03-11 13:27 | Day surgery (SDC) | payer MEDICARE, OTHER, SELFPAY ==
[2022-03-11 13:45] VITALS: BP 165/78; PULSE 66; RESP 16; TEMP 36.6; O2SAT 98
[2022-03-11] MEDS: LACTATED RINGERS 1,000 ML 200 ML IV (14:04)
--- NOTE | 2022-03-11 15:03 | PM.HP.1 ---
History of Present Illness History of Present Illness Date Patient Seen: 03/11/22 Time Patient Seen: 15:03 Chief complaint: [facility] [place] Narrative: Ferdinand is here for a colonoscopy. His last 1 was a few years ago and no polyps were found but the prep was inadequate and so he was encouraged to back this year. He had a colonoscopy about 5 years prior to that 1 with polyps removed. He has no known family history of colon cancer. Patient History Medical History (Updated 11/27/21 @ 16:48 by Ezio Hallman MD) Acute retention of urine BPH w urinary obs/LUTS (~2009) Essential hypertension (~1975) Generalized anxiety disorder Hearing loss Heart murmur Hyperlipidemia Hypertension Insomnia Mixed hyperlipidemia Obesity (BMI 30.0-34.9) Retinal detachment (~2014) Screening for colon cancer Vasculogenic erectile dysfunction Surgical History (Updated 10/03/21 @ 18:48 by Connie Mckeon) Anesthesia History of prostate surgery (~2016) History of tonsillectomy Family & Social History Family History (Updated 10/03/21 @ 18:49 by Connie Mckeon) Father History of heart disease Hypertension Mother Cancer Brother Alzheimer's disease Social History: household members spouse Tobacco & Substance use: Smoking Status Never smoker alcohol intake frequency a few times a month Substance Use Type does not use Meds Home Medications and Allergies Home Medications Medication Instructions Recorded Confirmed Type sildenafil 100 mg tablet (Viagra) 100 mg PO DAILY PRN Erectile 09/23/21 11/27/21 History Dysfunction losartan 100 mg tablet 100 mg PO DAILY #90 tabs 11/11/21 11/27/21 Rx amlodipine 10 mg tablet 10 mg PO DAILY #90 tabs 12/11/21 03/11/22 Rx atorvastatin 40 mg tablet 40 mg PO DAILY #90 tabs 12/11/21 Rx eplerenone 25 mg tablet 25 mg PO DAILY #90 tabs 01/25/22 Rx sodium sul 1.479 gram-potas ch See Rx Instructions PO PER PKG DIR 02/25/22 Rx 0.188 gram-magnes sul 0.225 gram #24 tabs tablet (Sutab) Allergies Allergy/AdvReac Type Severity Reaction Status Date / Time spironolactone AdvReac Intermediate Verified 11/27/21 14:36 Exam Vital Signs (past 8 hours): - 03/11/22 13:45 Temperature 97.9 F Pulse Rate 66 Respiratory Rate 16 Blood Pressure 165/78 H Pulse Oximetry 98 Oxygen Delivery Method Room Air Oxygen Delivery Method Room Air Const General: No acute distress Assessment & Plan Assessment and plan (1) Screening for colon cancer: Status: Acute Plan We discussed the risks and benefits of colonoscopy and he would like to proceed. Time Spent With Patient Critical Care time: I spent a total of [] minutes of critical care time on this patient's care today; this time is exclusive of procedural time.
[2022-03-11] MEDS: fentaNYL 100 MCG/2 ML INJ 200 MCG IV (15:25)
[2022-03-11] MEDS: MIDAZOLAM 5 MG/5 ML VIAL 8 MG IV (15:36)
--- NOTE | 2022-03-11 15:50 | PM.OP.COLON ---
Operative Date/Time/Diagnoses Date of procedure: 03/11/22 Time of procedure: 15:50 Pre-op diagnosis: Colon cancer screening Post-op diagnosis: same Procedure & Clinicians Study performed: Colonoscopy Same procedure as scheduled: Yes Surgeon: Chad Puri Procedure Notes Procedure in detail: Surgeon: Chad Puri MD Procedure: The patient was brought to the endoscopy suite, placed in left lateral decubitus position. The patient was connected to monitoring devices. A time-out was performed. Sedation was administered. Once the patient was adequately sedated, a digital rectal exam was performed and was normal. The scope was then inserted and advanced to the cecum where the appendiceal orifice was identified and photographed. The scope was then slowly withdrawn over greater than 6 minutes. The mucosa was thoroughly inspected. Prep was poor but was able to be irrigated and suctioned away. No polyps were found. There was moderate sigmoid diverticulosis. The scope was retroflexed in the rectum. No abnormalities were noted. The scope was straightened and removed. The patient was awakened and brought to recovery. Versed: 8 mg Fentanyl: 200 mcg EBL: 0 Findings: Sigmoid diverticulosis Scope withdrawal time: 12 Sedation minutes: 36 Post-procedure Disposition: PACU
[2022-03-11 15:53] VITALS: BP 125/63; PULSE 55; RESP 18; TEMP 36.8; O2SAT 97
[2022-03-11 16:00] VITALS: BP 146/71; PULSE 59; RESP 13; O2SAT 98
[2022-03-11 16:03] VITALS: BP 149/68; PULSE 55; RESP 13; O2SAT 98
[2022-03-11 16:08] VITALS: BP 163/77; PULSE 52; RESP 13; O2SAT 95
[2022-03-11 16:21] VITALS: BP 157/74; PULSE 57; RESP 20; TEMP 37; O2SAT 95
== END 2022-03-11 16:25 | disposition home or self-care (01) ==
PROVIDERS: Family Provider Internal Medicine; PCP Internal Medicine; Referring Provider Surgery; Visit Provider Surgery
PROC: 0DJD8ZZ Inspection of Lower Intestinal Tract, Via Natural or Artificial Opening Endoscopic (ICD-10-PCS; CPT 45378; principal; 2022-03-11 14:15)
DX: Z12.11 Encounter for screening for malignant neoplasm of colon (principal); Z86.010 Personal history of colon polyps; K57.30 Diverticulosis of large intestine without perforation or abscess without bleeding
CPT/HCPCS: G0105; 99152; 99153; G0121; J2250; J3010

== ENCOUNTER → 2022-06-24 08:44 | Outpatient (CLI) | payer MEDICARE, OTHER, SELFPAY ==
[2022-06-24 10:24] LABS: Alanine Aminotransferase 30 IU/L (<50); Albumin 4.1 g/dL (3.5-5.0); Albumin Globulin Ratio 1.6 (1.0-2.8); Alkaline Phosphatase 60 U/L (38-126); Aspartate Aminotransferase 24 IU/L (17-59); BUN Creatinine Ratio 28.2 (6-22); Bilirubin Total 0.7 mg/dL (0.2-1.3); Blood Urea Nitrogen 22 mg/dL (9-20); Calcium 9.2 mg/dL (8.4-10.2); Carbon Dioxide 27 mmol/L (22-32); Chloride 103 mmol/L (98-107); Cholesterol 183 mg/dL (140-199); Estimated Glomerular Filt Rate > 60 mL/min (>60); Globulin 2.6 g/dL (1.7-4.1); Glucose 109 mg/dL (80-110); HDL Cholesterol 48 mg/dL (40-60); HEMOLYSIS < 15 (0-50); LDL Cholesterol Calculated 116 mg/dL (<100); Potassium 4.6 mmol/L (3.4-5.1); Sodium 137 mmol/L (137-145); Total Protein 6.7 g/dL (6.3-8.2); Triglycerides 95 mg/dL (35-150)
[2022-06-24 10:51] LABS: Prostate Specific Antigen 1.62 ng/mL (0.10-4.00)
== END ==
PROVIDERS: Family Provider Internal Medicine; PCP Internal Medicine; Referring Provider Internal Medicine; Visit Provider Internal Medicine
DX: E78.2 Mixed hyperlipidemia (principal); N40.1 Benign prostatic hyperplasia with lower urinary tract symptoms; I10 Essential (primary) hypertension; N13.8 Other obstructive and reflux uropathy
CPT/HCPCS: 36415; 80053; 80061; 84153

== ENCOUNTER → 2022-09-17 12:25 | Outpatient (CLI) | payer MEDICARE, OTHER, SELFPAY ==
--- NOTE | 2022-09-17 12:26 | DI.ECHO.S_ITS ---
[facility] +---------+ [facility] +---------+ : : [address] [place] : : : : [id number] : : : : Phone: [phone] Echocardiogram Report + + :Name: Seth Schneider Study Date: 09/17/2022 Height: 69 in : :[facility] ReadingLocation: Weight: 210 lb : : Gender: Other BSA: 2.1 m2 : :: 1945 Age: 76 yrs BP: 130/80 mmHg: :Reason For Study: HYPERTENSION HR: 55 : :Ordering Physician: LOLIS, : :ELLIOT Performed By: KAYLEY TRIMBLE : :Referring: ELLIOT DANIELLE : + + Interpretation Summary The ejection fraction is estimated to be 55-60%. The left atrium is moderately dilated. The aortic valve is moderately calcified. There is mild aortic stenosis. There is mild tricuspid regurgitation. The right ventricular systolic pressure is estimated to be at least 25 mmHg based on an estimated right atrial pressure of 3 mm Hg. Procedure: A two-dimensional transthoracic echocardiogram with color flow and Doppler was performed. The study quality was technically adequate. Comparison is made with the echocardiogram of 08/24/2006. The patient was in normal sinus rhythm during the exam. Left Ventricle: The left ventricle is normal in size. Left ventricular wall thickness is mildly increased. Trabeculae near apex are visualized. No thrombus is observed. Left ventricular systolic function is normal. The ejection fraction is estimated to be 55-60%. There are no obvious focal wall motion abnormalities noted but poor endocardial definition reduces the sensitivity for the detection of such. Right Ventricle: The right ventricle grossly appears normal in size with probable normal systolic function. Atria: The left atrium is moderately dilated. The right atrium is normal in size. There is no Doppler evidence for an interatrial shunt. The atrial septum is aneurysmal. Mitral Valve: The mitral valve is normal in structure and function. There is trace mitral regurgitation. Aortic Valve: The aortic valve is trileaflet. The aortic valve is moderately calcified. There is mild aortic stenosis. The aortic valve area indexed to the BSA is 0.96 . The peak aortic velocity is 2.6 m/sec. The aortic valve mean gradient is 17 mmHg. Severity ratio is 0.64. There is mild aortic regurgitation. Tricuspid Valve: The tricuspid valve is normal in structure and function. There is mild tricuspid regurgitation. The right ventricular systolic pressure is estimated to be at least 25 mmHg based on an estimated right atrial pressure of 3 mm Hg. Pulmonic Valve: The pulmonic valve is normal in structure and function. There is mild pulmonic regurgitation. Great Vessels: The aortic root is not well visualized. The ascending aorta could not be visualized. The IVC is of normal diameter and collapses greater than 50% with a sniff. This suggests a low right atrial pressure of 3 mm Hg. Pericardium/ Pleura There is no pericardial effusion. There is no pleural effusion. MMode/2D Measurements & Calculations LVIDd: 4.3 cm LVOT diam: 2.0 cm IVSd: 1.1 cm LVPWd: 1.3 cm LV murillo. diameter/BSA (cm/m^2): 2.0 LA A2 area: 28.3 cm2 RA long axis: 6.2 cm LA A4 area: 24.7 cm2 RA area: 20.6 cm2 LA length (vol): 6.1 cm RA vol: 58.1 ml LA vol: 97.2 ml RA : 27.5 ml/m2 LA vol index: 46.1 ml/m2 IVC diam: 2.0 cm TAPSE: 2.2 cm Doppler Measurements & Calculations Ao V2 max: 261.2 cm/sec LVOT Max Axel: 154.6 cm/sec Ao V2 mean: 200.7 cm/sec LV V1 max P.6 mmHg Ao max P.3 mmHg LV V1 VTI: 39.5 cm Ao mean P.4 mmHg PEDRO(I,D): 2.0 cm2 Ao V2 VTI: 61.5 cm PEDRO(V,D): 1.9 cm2 sev ratio: 0.64 PEDRO indexed to BSA (cm^2/m^2): 0.96 AI P1/2t: 540.4 msec AI dec slope: 193.9 cm/sec2 MV E max axel: 78.3 cm/sec TR max axel: 236.3 cm/sec MV A max axel: 67.2 cm/sec TR max P.3 mmHg MV E/A: 1.2 PA V2 max: 113.4 cm/sec Med Peak E' Axel: 10.3 cm/sec PA V2 mean: 74.7 cm/sec E/E' med: 7.6 PA mean P.5 mmHg Lat Peak E' Axel: 8.1 cm/sec PA pr(Accel): 32.8 mmHg E/E' lat: 9.6 E/e' average: 8.6 MV dec time: 0.25 sec SV(LVOT): 123.9 ml Reading Physician:10:41 AM
== END ==
PROVIDERS: Family Provider Internal Medicine; PCP Internal Medicine; Referring Provider Internal Medicine; Visit Provider Internal Medicine
DX: I08.2 Rheumatic disorders of both aortic and tricuspid valves (principal); R01.1 Cardiac murmur, unspecified; I10 Essential (primary) hypertension
CPT/HCPCS: 93306

== ENCOUNTER → 2023-06-27 15:15 | Outpatient (CLI) | payer MEDICARE, OTHER, SELFPAY ==
[2023-06-27 15:47] LABS: Hemoglobin 13.3 g/dL (13.5-17.5); Mean Corpuscular HGB Conc 34.1 % (30-36); Mean Corpuscular Hemoglobin 30.1 PG (26-34); Mean Corpuscular Volume 88.2 fL (80-100); Platelet Count 224 X10^3/uL (150-400); Red Blood Cell Count 4.42 X10^6/uL (4.5-5.9); Red Cell Distribution Width 13.6 % (11.6-14.8); White Blood Cell Count 9.9 X10^3/uL (4.5-11.0)
[2023-06-27 16:23] LABS: Aspartate Aminotransferase 33 IU/L (17-59); BUN Creatinine Ratio 22.1 (6-22); Blood Urea Nitrogen 23 mg/dL (9-20); Calcium 9.6 mg/dL (8.4-10.2); Carbon Dioxide 29 mmol/L (22-32); Chloride 103 mmol/L (98-107); Cholesterol 181 mg/dL (140-199); Estimated Glomerular Filt Rate > 60 mL/min (>60); Glucose 96 mg/dL (80-110); HDL Cholesterol 38 mg/dL (40-60); HEMOLYSIS < 15 (0-50); LDL Cholesterol Calculated 112 mg/dL (<100); Potassium 4.3 mmol/L (3.4-5.1); Sodium 138 mmol/L (137-145); Triglycerides 155 mg/dL (35-150)
[2023-06-27 16:53] LABS: Prostate Specific Antigen 1.99 ng/mL (0.10-4.00)
== END ==
PROVIDERS: Family Provider Internal Medicine; PCP Internal Medicine; Referring Provider Internal Medicine; Visit Provider Internal Medicine
DX: N13.8 Other obstructive and reflux uropathy (principal); E78.2 Mixed hyperlipidemia; N40.1 Benign prostatic hyperplasia with lower urinary tract symptoms; I10 Essential (primary) hypertension
CPT/HCPCS: 36415; 80048; 80061; 84153; 84450; 85027

== ENCOUNTER → 2024-10-04 06:54 | Outpatient (CLI) | payer MEDICARE, OTHER, SELFPAY ==
[2024-10-04 07:51] LABS: Hematocrit 36.2 % (41-53); Hemoglobin 12.3 g/dL (13.5-17.5); Mean Corpuscular Hemoglobin 29.9 PG (26-34); Mean Corpuscular Volume 87.8 fL (80-100); Platelet Count 227 X10^3/uL (150-400); Red Blood Cell Count 4.13 X10^6/uL (4.5-5.9); Red Cell Distribution Width 14.3 % (11.6-14.8); White Blood Cell Count 9.4 X10^3/uL (4.5-11.0)
[2024-10-04 08:13] LABS: Alanine Aminotransferase 29 IU/L (<50); Albumin 4.1 g/dL (3.5-5.0); Albumin Globulin Ratio 1.9 (1.0-2.8); Alkaline Phosphatase 55 U/L (38-126); Aspartate Aminotransferase 27 IU/L (17-59); BUN Creatinine Ratio 33.7 (6-22); Bilirubin Total 0.7 mg/dL (0.2-1.3); Blood Urea Nitrogen 31 mg/dL (9-20); Calcium 9.3 mg/dL (8.4-10.2); Carbon Dioxide 24 mmol/L (22-32); Chloride 105 mmol/L (98-107); Cholesterol 170 mg/dL (140-199); Estimated Glomerular Filt Rate > 60 mL/min (>60); Globulin 2.2 g/dL (1.7-4.1); Glucose 102 mg/dL (70-99); HDL Cholesterol 60 mg/dL (40-60); HEMOLYSIS < 15 (0-50); LDL Cholesterol Calculated 95 mg/dL (<100); Potassium 4.3 mmol/L (3.4-5.1); Sodium 137 mmol/L (137-145); Total Protein 6.3 g/dL (6.3-8.2); Triglycerides 73 mg/dL (35-150)
[2024-10-04 08:41] LABS: Prostate Specific Antigen 1.84 ng/mL (0.10-4.00)
== END ==
PROVIDERS: Family Provider Internal Medicine; PCP Internal Medicine; Referring Provider Internal Medicine; Visit Provider Internal Medicine
DX: I10 Essential (primary) hypertension (principal); N40.1 Benign prostatic hyperplasia with lower urinary tract symptoms; N13.8 Other obstructive and reflux uropathy; E78.2 Mixed hyperlipidemia
CPT/HCPCS: 36415; 80053; 80061; 84153; 85027

== ENCOUNTER 2025-04-26 15:45 | Emergency (ER) | payer MEDICARE, OTHER, SELFPAY ==
[2025-04-26 16:02] VITALS: BP 141/63; PULSE 56; RESP 18; TEMP 36.6; O2SAT 96; BMI 26.6
--- NOTE | 2025-04-26 16:11 | ED_ITS ---
<Statement entered by Kyle Ma, - 04/26/25 21:53> Dr. Ma: I was immediately available in the department for consultation. I did not actually see the patient. HPI - Wound/Laceration General Chief Complaint: Wound/Laceration Stated Complaint: R hand third finger laceration Time Seen by Provider: 04/26/25 16:00 Source: patient Mode of arrival: Ambulatory History of Present Illness HPI narrative: Mr. Schneider is a very pleasant 79 year old male with a past medical history of HTN, HLD who presents to the emergency department for a right ring finger laceration that occurred a few hours prior to arrival. Patient was cutting vegetables when he accidentally cut the tip of his right 4th digit involving the nailbed. He takes baby aspirin no other blood thinners. He denies any concern for foreign body or bone injury. He wrapped the wound with multiple Band-Aids but it continued to bleed which is what prompted his ER arrival. His Tdap is up-to-date 2019. Related Data Home Medications ?Medication ?Instructions ?Recorded ?Confirmed aspirin 81 mg tablet 81 mg PO DAILY 03/06/2502/12 Previous Rx's ?Medication ?Instructions ?Recorded amlodipine 10 mg tablet 10 mg PO DAILY #90 tabs 07/07 atorvastatin 40 mg tablet 40 mg PO DAILY #90 tabs 07/07 eplerenone 25 mg tablet 25 mg PO DAILY #90 tabs 0407/07 losartan 100 mg tablet 100 mg PO DAILY #90 tabs 07/07 minoxidil 10 mg tablet 10 mg PO BID #180 tabs 09/11 carvedilol 6.25 mg tablet 6.25 mg PO BID #180 tabs cephalexin 500 mg capsule 500 mg PO TID 5 days #15 cap s 04/26/25 Allergies Allergy/AdvReac Type Severity Reaction Status Date / Time atenolol AdvReac Intermediate Depression Verified 03/06/25 07:41 spironolactone AdvReac Intermediate Verified 03/06/25 07:41 Review of Systems Review of Systems ROS Unobtainable: All systems reviewed & are unremarkable except as noted in HPI and below Patient History Medical History Onychomycosis Generalized anxiety disorder Insomnia Hearing loss Retinal detachment (~2014) Obesity (BMI 30.0-34.9) 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 Well-developed patient, in no acute distress. HEAD: Atraumatic. Normocephalic. EYES: No scleral icterus. No injection or drainage. NECK: Trachea midline. Cervical ROM intact. CARDIOVASCULAR: Regular rate RESPIRATORY: ?Nonlabored respirations. ?Speaking in clear, full sentences. EXTREMITIES: Laceration on dorsal aspect of right 4th digit involving the nail and the nailbed. Brisk cap refill in the tip of the finger and sensation intact to light touch in the tip of finger, patient has isolated flexion-extension of the D IP, PIP, MCP. After removal of nail, the nail bowel has a 1 cm irregular laceration, somewhat triangular in shape. No visible bone. NEURO: AOx3. ?Clear speech. ?Moves all 4 extremities appropriately. SKIN: Right 4th finger laceration described above. Initial Vital Signs Initial Vital Signs: Vital Signs Temperature 97.8 F 04/26/25 16:02 Pulse Rate 56 L 04/26/25 16:02 Respiratory Rate 18 04/26/25 16:02 Blood Pressure 141/63 H 04/26/25 16:02 Pulse Oximetry 96 04/26/25 16:02 Oxygen Delivery Method Room Air 04/26/25 16:02 Procedures Laceration Repair Laceration 1: Site: hand (4th digit distal tip) Side (If applicable): right Size (cm): 1 Description: irregular Depth: simple, single layer Local Anesthetic: other anesthetic (lidocaine 1% digital block ) Amount of anesthesia used (mL): 5 Pre-repair: wound explored, irrigated extensively (Irrigated extensively with diluted Betadine. Nail removed.) and deep structures intact Skin layer closed with: other (monocryl ) Skin layer suture size: 5-0 Number of sutures: 4 Technique: simple, interrupted Course Orders Ordered: Discontinued Medications Bacitracin (Bacitracin Oint 0.9 Gm Pckt) 1 applic TOP NOW ONE Stop: 04/26/25 16:17 Last Admin: 04/26/25 16:33 Dose: 1 applic Documented By: TATIANA Cephalexin HCl (Cephalexin 250 Mg Capsule) 500 mg PO NOW ONE Stop: 04/26/25 18:06 Last Admin: 04/26/25 18:15 Dose: 500 mg Documented By: TATIANA Lidocaine HCl (Lidocaine 1% (Pf) 5 Ml) 5 ml SUBCUT NOW ONE Stop: 04/26/25 16:31 Last Admin: 04/26/25 16:33 Dose: 5 ml Documented By: TATIANA Vital Signs Vital signs: Vital Signs - 8 hr 04/26/25 16:02 Temperature 97.8 F Pulse Rate 56 L Respiratory Rate 18 Blood Pressure 141/63 H Pulse Oximetry 96 Oxygen Delivery Method Room Air MDM - Wound/Laceration Medical Records Attestation: I reviewed the patient's medical records. MDM Narrative Medical decision making narrative: 79 year old male with a past medical history of HTN, HLD who presents to the emergency department for a right ring finger laceration that occurred a few hours prior to arrival. Differential diagnosis includes but is not limited to finger laceration, nailbed injury, tuft fracture, etc. On exam patient is in no acute distress, nontoxic-appearing, all vital signs within normal limits. He has a laceration to the distal tip of the right 4th finger that involves the nail and the nailbed. His Tdap is up-to-date. He is neurovascularly intact. Patient consents to proceed with digital block and laceration repair. He declines x-ray. Digital block performed successfully of right 4th digit using lidocaine 1%. The patient's 4th nail was removed to allow visibility of the nailbed laceration. This revealed a 1 cm nail bed laceration. Four simple interrupted Monocryl sutures were used to repair the nail bed laceration. After shared decision- making with the patient, a cleansed piece of suture foil was used to create an artificial nail that was then slid below his proximal nail fold. This was not sutured in place and instead was simply Steri-Strips in place, patient is aware that this will come off in a few days and it is possible that the nail may or may not grow back or may go back to formed. Patient states that he has an appointment with his primary care doctor in a few days, I would like this wound to be rechecked at this time if unable to be checked by the PCP he can return to the ER or the walk-in clinic. Discussed daily wound care with the patient. He was prescribed empiric cephalexi, 1st dose given in the ER. He had total cessation of bleeding and a nonadherent dressing was applied to the finger. Discussed supportive care and ER return precautions. Patient verbalized understanding of all information agreeable plan. He is ambulatory and stable for discharge home. Discharge Plan Departure Patient Disposition: Home Clinical Impression: Finger laceration Qualifiers: Encounter type: initial encounter Finger: ring finger Damage to nail status: with damage Foreign body presence: without foreign body Laterality: right Qualified Code(s): S61.314A - Laceration without foreign body of right ring finger with damage to nail, initial encounter Instructions: DI for Laceration Repair, DI for Nail Bed Injury Activity Restrictions/Additional Instructions: Dear Mr. Schneider, Thank you for coming to the emergency department. Today you were evaluated for an injury to the right 4th finger tip and nail. Your nail was removed and absorbable stitches were used to repair the nailbed. An artificial nail was placed for protection using suture foil. This will come off on its own in about a week when the skin tape comes off. It is very important that you have this wound re-evaluated with your primary care doctor, in the walk-in clinic or the emergency department within the next week for further evaluation. Please keep the dressing on your wound clean, dry, and intact for the next 24 hours. After this time, you may remove the dressing and gently clean the wound with soap and water, then pat dry. Keep the wound clean and covered. Avoid soaking the wound in any water such as a bath, pool, or the ocean. If you develop any signs of wound infection such as increased redness, pus drainage, streaking redness, or fevers, please return to the ER immediately for evaluation. Once sutures are removed and the wound has healed, apply sunscreen daily to reduce the appearance of scars. You have been prescribed a short course of antibiotics to help prevent wound infection. Please use RICE therapy for your pain in addition to ibuprofen/acetaminophen. Rest the painful area. Ice the area of pain/swelling for at least 15 minutes, 4x a day. Compress the area of swelling using a brace, wrap, or splint if applied. Elevate the painful or swollen extremity by supporting it above the level of the heart with pillows when sitting or laying. Please follow up with your primary care doctor within the next 2-3 days for ER follow-up. (If you do not have a PCP you can call [phone]. ?to schedule an appointment with an [facility] Primary Care Provider) IF YOU DEVELOP ANY NEW OR WORSENING SYMPTOMS, RETURN TO THE ER! Please read the attached instructions, they highlight more specific treatments and interventions for you at home. Thank you for letting me participate in your care, Natalia Pathak PA-C Prescriptions: New cephalexin 500 mg capsule 500 mg PO TID 5 Days Qty: 15 0RF No Action amlodipine 10 mg tablet 10 mg PO DAILY Qty: 90 3RF atorvastatin 40 mg tablet 40 mg PO DAILY Qty: 90 3RF eplerenone 25 mg tablet 25 mg PO DAILY Qty: 90 3RF losartan 100 mg tablet 100 mg PO DAILY Qty: 90 3RF minoxidil 10 mg tablet 10 mg PO BID Qty: 180 3RF aspirin 81 mg tablet 81 mg PO DAILY carvedilol 6.25 mg tablet 6.25 mg PO BID Qty: 180 3RF Rx Instructions: must administer with a meal/food Referrals: Ezio Hallman MD [Primary Care Provider, Internal Medicine] Stand Alone Forms: Patient Portal/API
[2025-04-26] MEDS: LIDOCAINE 1% (PF) 5 ML SUBCUT (16:33)
[2025-04-26] MEDS: BACITRACIN OINT 0.9 GM PCKT 1 APPLIC TOP (16:33)
== END 2025-04-26 18:22 | disposition home or self-care (01) ==
PROVIDERS: Emergency Provider Physician Assistant; PCP Internal Medicine
DX: S61.314A Laceration without foreign body of right ring finger with damage to nail, initial encounter (principal); W26.0XXA Contact with knife, initial encounter
CPT/HCPCS: 12001; 99283

== ENCOUNTER → 2025-05-01 08:34 | Outpatient (CLI) | payer MEDICARE, OTHER, SELFPAY ==
[2025-05-01 09:38] LABS: Appearance Urine UA CLOUDY; Bilirubin Urine UA NEGATIVE (NEGATIVE); Color Urine UA BROWN; Glucose Urine UA NEGATIVE (Negative); Ketones Urine UA NEGATIVE (NEGATIVE); Leukocyte Esterase Urine UA TRACE (NEGATIVE); Nitrite Urine UA NEGATIVE (Negative); Occult Blood Urine UA 3+ (Negative); Protein Urine UA 2+ (Negative); Specific Gravity Urine UA 1.025 (1.000-1.035); Urobilinogen Urine UA 0.2 E.U./dL (0.2); pH Urine UA 6.0 (4.5-8.0)
[2025-05-01 09:40] LABS: Culture Indicated Urine Specimen Cultured
== END ==
PROVIDERS: PCP Internal Medicine; Referring Provider Internal Medicine; Visit Provider Internal Medicine
DX: R31.9 Hematuria, unspecified (principal)
CPT/HCPCS: 81001; 87086

== ENCOUNTER 2025-05-03 16:50 | Emergency (ER) | payer MEDICARE, OTHER, SELFPAY ==
--- NOTE | 2025-05-03 16:59 | ED.GENADULT ---
HPI - General Adult General Chief complaint: Urogenital-Male Stated complaint: blood in urine, Dr. Hallman sent patient to ED Time Seen by Provider: 05/03/25 16:59 History of Present Illness HPI narrative: 79-year-old gentleman with a history of hypertension, hyperlipidemia, BPH surgery greater than 5 years ago. Presents with at least a week of gross hematuria and prior to that had very dark. Soft primary doctor 2 ago urinalysis was ordered, did show red cells. Today began having increased frequency, there is no pain, flank pain, abdominal pain does not describe any similar findings. Notes that he has been losing weight with effort Related Data Home Medications ?Medication ?Instructions ?Recorded ?Confirmed aspirin 81 mg tablet 81 mg PO DAILY 03/06/25 05/01/25 Previous Rx's ?Medication ?Instructions ?Recorded amlodipine 10 mg tablet 10 mg PO DAILY #90 tabs 09/11/24 atorvastatin 40 mg tablet 40 mg PO DAILY #90 tabs 09/11/24 eplerenone 25 mg tablet 25 mg PO DAILY #90 tabs 09/11/24 losartan 100 mg tablet 100 mg PO DAILY #90 tabs 09/11/24 minoxidil 10 mg tablet 10 mg PO BID #180 tabs 09/11/24 carvedilol 6.25 mg tablet 6.25 mg PO BID #180 tabs 03/06/25 Allergies Allergy/AdvReac Type Severity Reaction Status Date / Time atenolol AdvReac Intermediate Depression Verified 05/03/25 16:58 spironolactone AdvReac Intermediate Verified 05/03/25 16:58 Review of Systems Review of Systems Narrative: Pertinent positive and negative findings as per HPI Patient History Medical History Onychomycosis Generalized anxiety disorder Insomnia Hearing loss Retinal detachment (~2014) Obesity (BMI 30.0-34.9) 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) Mixed hyperlipidemia Essential hypertension (~1975) Acute retention of urine Surgical History Anesthesia History of prostate surgery (~2016) History of tonsillectomy Family History Father History of heart disease Hypertension Mother Cancer Brother Alzheimer's disease Social History details: (Amanda), 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, 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 Smoking Status: Never smoker alcohol intake frequency: a few times a month Exam Initial Vital Signs Initial Vital Signs: Vital Signs Temperature 98 F 05/03/25 17:03 Pulse Rate 61 05/03/25 17:03 Respiratory Rate 17 05/03/25 17:03 Blood Pressure 199/83 H 05/03/25 17:03 Pulse Oximetry 97 05/03/25 17:03 Oxygen Delivery Method Room Air 05/03/25 17:03 General: Alert appropriate in no acute distress Respiratory: Able to speak in full sentences, no obvious respiratory distress Abdomen: Soft, no flank pain Skin: No obvious rashes, warm and dry Neurologic: Grossly intact no obvious asymmetries or abnormalities Psych: appropriate insight and affect, cooperative Course Orders Ordered: ED Orders 05/03/25 17:03 CT kidney ureter bladder (KUB) Stat 05/03/25 17:15 Ictotest Urine Stat Urinalysis and Microscopic Stat Urine Culture Stat 05/03/25 17:24 Complete Blood Count AUTO DIFF Stat Comprehensive Metabolic Panel Stat Vital Signs Vital signs: Vital Signs - 8 hr 05/03/25 17:03 05/03/25 20:28 Temperature 98 F Pulse Rate 61 51 L Respiratory Rate 17 18 Blood Pressure 199/83 H 169/75 H Pulse Oximetry 97 97 Oxygen Delivery Method Room Air Room Air Medical Decision Making Lab Data 05/03/25 17:24 05/03/25 17:24 Labs: Lab Results 05/03/25 05/03/25 Range/Units 17:15 17:24 WBC 10.4 (4.5-11.0) X10^3/uL RBC 4.10 L (4.5-5.9) X10^6/uL Hgb 12.2 L (13.5-17.5) g/dL Hct 36.2 L (41-53) % MCV 88.2 (80-100) fL MCH 29.8 (26-34) PG MCHC 33.8 (30-36) % RDW 14.6 (11.6-14.8) % Plt Count 213 (150-400) X10^3/uL Neut % (Auto) 63.4 (50-75) % Lymph % (Auto) 24.6 L (25-40) % [place] % (Auto) 7.1 (3-14) % Eos % (Auto) 3.5 (2-4) % Baso % (Auto) 1.4 (0-2) % Neut # (Auto) 6600 (3823-7246) /uL Lymph # (Auto) 2600 (0698-2779) /uL [place]ven # (Auto) 700 (0-900) /uL Eos # (Auto) 400 (0-450) /uL Baso # (Auto) 100 (0-100) /uL Sodium 138 (137-145) mmol/L Potassium 4.5 (3.4-5.1) mmol/L Chloride 106 (98-107) mmol/L Carbon Dioxide 23 (22-32) mmol/L BUN 19 (9-20) mg/dL Creatinine 0.86 (0.66-1.25) mg/dL Estimated GFR > 60 (>60) mL/min BUN/Creatinine Ratio 22.1 H (6-22) Glucose 107 H (70-99) mg/dL Calcium 9.0 (8.4-10.2) mg/dL Total Bilirubin 0.6 (0.2-1.3) mg/dL AST 33 (17-59) IU/L ALT 28 (<50) IU/L Alkaline Phosphatase 37 L (38-126) U/L Total Protein 6.8 (6.3-8.2) g/dL Albumin 4.1 (3.5-5.0) g/dL Globulin 2.7 (1.7-4.1) g/dL Albumin/Globulin Ratio 1.5 (1.0-2.8) Urine Color Red Urine Appearance Cloudy Urine pH 7.5 (4.5-8.0) Ur Specific [place] 1.015 (1.000-1.035) Urine Protein 3+ H (Negative) Urine Glucose (UA) Negative (Negative) g/dL Urine Ketones Negative (NEGATIVE) Urine Occult Blood 3+ H (Negative) Urine Nitrate Negative (Negative) Urine Bilirubin 1+ H (NEGATIVE) Ur Bilirubin Confirm Negative (Negative) Urine Urobilinogen 1.0 (0.2) E.U./dL Ur Leukocyte Esterase Trace H (NEGATIVE) Urine RBC >100/hpf H (0-5/HPF) Urine WBC 1-5/hpf (0-5/HPF) Ur Squamous Epith Cells 0-1 /hpf (0-5/HPF) Urine Bacteria Few (2-10) H (None) Ur Culture Indicated? Specimen cultured Vol Urine Centrifuged 10ml (spun) Imaging Data CT scan - abdomen/pelvis: Radiologist's Impression: PROCEDURE: CT KIDNEY URETER BLADDER (KUB) INDICATIONS: gross hematuria TECHNIQUE: Axial sections were acquired from the lung bases to the pubic symphysis. Coronal and sagittal reformats were performed. For radiation dose reduction, the following was used: automated exposure control, adjustment of mA and/or kV according to patient size. COMPARISON: None. FINDINGS: Image quality: Diagnostic. Lower Chest: No significant findings. URINARY: Right Kidney: No stones or hydronephrosis. Fluid attenuation right renal hypodensity likely representing a cyst. Right Ureter: No hydroureter. Left Kidney: A 4 x 4 mm calcification in the right renal hilum favored to represent vascular calcification. A nonobstructing renal stone not excluded. Left renal cyst. Left Ureter: Left ureter is normal in course and caliber without ureteral stone. Bladder: There are a few hyperdense nodularities noted in the dependent portions of the urinary bladder without significant wall thickening. However, there appears to be asymmetric wall thickening of hyperdense material on the lateral right urinary bladder wall not in a dependent location. ABDOMEN: Liver: No contour-deforming solid mass. Gallbladder: Decompressed gallbladder. Biliary ducts: No biliary dilation. Pancreas: No ductal dilation. Spleen: Size is within normal limits. Adrenal Glands: No adrenal nodules. Stomach and Bowel: Normal colonic caliber, without significant wall thickening. Moderate fecal burden seen throughout the colon. No evidence for small bowel obstruction or associated inflammatory changes. The appendix is not definitively visualized. However, no secondary findings of acute inflammation are noted in the right lower quadrant. Peritoneum: No abnormal intraperitoneal fluid. No free air. Ventral Wall: No significant ventral hernia. Abdominal Nodes: No enlarged retroperitoneal or mesenteric lymph nodes. Vessels: Aorta and inferior vena cava are normal in size. PELVIS: Pelvic Organs: Prostatomegaly. Pelvic Nodes: Unremarkable. Miscellaneous: No inguinal hernias are seen. Bones: Unremarkable. No acute vertebral body compression fractures. Multilevel spondylitic changes throughout the imaged spine. No suspicious osseous lesions. IMPRESSION: Focal hyperdense material within the dependent portions of the urinary bladder without wall thickening. However, there is a focal hyperdense lesion along the lateral right urinary bladder wall in a nondependent location. Although this may represent an adherent focus of hemorrhagic products, a urinary bladder mass not completely excluded. Consider further evaluation with direct visualization. Prostatomegaly. Other chronic/non-acute findings as above. Dictated by: Allen Navarro M.D. on 05/03/2025 at 19:31 MDM Narrative Medical decision making narrative: 79-year-old gentleman couple of weeks of brownish urine and now a week of gross hematuria feels well otherwise Differential includes neoplastic process, BPH with bleeding into the bladder, urinary tract infection Exam is benign Labs: CBC: No leukocytosis, mild stable anemia Chemistries: Appropriate renal function with creatinine at 0.86. Liver studies were unremarkable CT scan shows normal kidneys however there is a focal hyperdense area within the dependent portions of the bladder without wall thickening. This may be an adherent focus of hemorrhagic products but a bladder mass can not be excluded. Discussion: 79-year-old gentleman with what sounds like microscopic hematuria for the last couple of weeks and gross hematuria for the last week. It was initially felt to have a bladder infection however urine culture from the does not confirm that. Urine today shows only blood. CT scan shows no kidney abnormalities but concern for the focal hyperdense lesion in the bladder, potential for a blood clot but also potential for bladder cancer. These findings reviewed with the patient. His primary care physician has apparently initiated as an outpatient referral for Urology. Copy of this note will be sent to urology office unless the patient call and schedule an ER follow up appointment with Dr. Campbell. Questions were answered he is encouraged to return to the emergency department with difficulties with urinating or worsening symptoms. Discharge Plan Departure Patient Disposition: Home Clinical Impression: Abnormal CT scan, bladder Hematuria Qualifiers: Hematuria type: gross Qualified Code(s): R31.0 - Gross hematuria Instructions: DI for Hematuria Activity Restrictions/Additional Instructions: Thank you for coming in today With blood in your urine we worry about a bladder infection, kidney abnormalities, bleeding in your bladder and bladder tumors. The blood work today shows healthy kidney function. Your urine shows red blood cells but no white blood cells or bacteria to just infection. The urine sample obtained on the does not show a bladder infection The CT scan of your abdomen shows normal kidneys, no other masses in the abdomen. With the bladder, there is hyperdense material with out any wall thickening. This could be a blood clot from a small broken blood vessel that is causing the bleeding. The potential for bladder cancer is there. The next step in figuring out what is going on in your bladder is seeing a urologist and having a cystoscopy. You said Dr. Hallman was initiating an outpatient referral to Urology. I have included a copy of my note to our urology clinic. I am going to suggest that you call the urology clinic to schedule an appointment with Dr. Campbell to get to a final diagnosis for the source of your hematuria. The urology office phone number is [phone] If you find that you are getting worse or develop any new symptoms, please feel free to return to the emergency department for further evaluation. Prescriptions: No Action amlodipine 10 mg tablet 10 mg PO DAILY Qty: 90 3RF atorvastatin 40 mg tablet 40 mg PO DAILY Qty: 90 3RF eplerenone 25 mg tablet 25 mg PO DAILY Qty: 90 3RF losartan 100 mg tablet 100 mg PO DAILY Qty: 90 3RF minoxidil 10 mg tablet 10 mg PO BID Qty: 180 3RF aspirin 81 mg tablet 81 mg PO DAILY carvedilol 6.25 mg tablet 6.25 mg PO BID Qty: 180 3RF Rx Instructions: must administer with a meal/food Referrals: Ezio Hallman MD [Primary Care Provider, Internal Medicine] Stand Alone Forms: Patient Portal/API
[2025-05-03 17:03] VITALS: BP 199/83; PULSE 61; RESP 17; TEMP 36.6; O2SAT 97; BMI 26.6
--- NOTE | 2025-05-03 17:03 | DI.CT.S_ITS ---
PROCEDURE: CT KIDNEY URETER BLADDER (KUB) INDICATIONS: gross hematuria TECHNIQUE: Axial sections were acquired from the lung bases to the pubic symphysis. Coronal and sagittal reformats were performed. For radiation dose reduction, the following was used: automated exposure control, adjustment of mA and/or kV according to patient size. COMPARISON: None. FINDINGS: Image quality: Diagnostic. Lower Chest: No significant findings. URINARY: Right Kidney: No stones or hydronephrosis. Fluid attenuation right renal hypodensity likely representing a cyst. Right Ureter: No hydroureter. Left Kidney: A 4 x 4 mm calcification in the right renal hilum favored to represent vascular calcification. A nonobstructing renal stone not excluded. Left renal cyst. Left Ureter: Left ureter is normal in course and caliber without ureteral stone. Bladder: There are a few hyperdense nodularities noted in the dependent portions of the urinary bladder without significant wall thickening. However, there appears to be asymmetric wall thickening of hyperdense material on the lateral right urinary bladder wall not in a dependent location. ABDOMEN: Liver: No contour-deforming solid mass. Gallbladder: Decompressed gallbladder. Biliary ducts: No biliary dilation. Pancreas: No ductal dilation. Spleen: Size is within normal limits. Adrenal Glands: No adrenal nodules. Stomach and Bowel: Normal colonic caliber, without significant wall thickening. Moderate fecal burden seen throughout the colon. No evidence for small bowel obstruction or associated inflammatory changes. The appendix is not definitively visualized. However, no secondary findings of acute inflammation are noted in the right lower quadrant. Peritoneum: No abnormal intraperitoneal fluid. No free air. Ventral Wall: No significant ventral hernia. Abdominal Nodes: No enlarged retroperitoneal or mesenteric lymph nodes. Vessels: Aorta and inferior vena cava are normal in size. PELVIS: Pelvic Organs: Prostatomegaly. Pelvic Nodes: Unremarkable. Miscellaneous: No inguinal hernias are seen. Bones: Unremarkable. No acute vertebral body compression fractures. Multilevel spondylitic changes throughout the imaged spine. No suspicious osseous lesions. IMPRESSION: Focal hyperdense material within the dependent portions of the urinary bladder without wall thickening. However, there is a focal hyperdense lesion along the lateral right urinary bladder wall in a nondependent location. Although this may represent an adherent focus of hemorrhagic products, a urinary bladder mass not completely excluded. Consider further evaluation with direct visualization. Prostatomegaly. Other chronic/non-acute findings as above. Dictated by: Allen Navarro M.D. on 05/03/2025 at 19:31 Approved by: Allen Navarro M.D. on 05/03/2025 at 19:38
[2025-05-03 17:52] LABS: Add Manual Diff / Slide Review NO; Hematocrit 36.2 % (41-53); Hemoglobin 12.2 g/dL (13.5-17.5); Lymphocytes Absolute Auto 2600 /uL (1100-4500); Mean Corpuscular HGB Conc 33.8 % (30-36); Mean Corpuscular Hemoglobin 29.8 PG (26-34); Mean Corpuscular Volume 88.2 fL (80-100); Platelet Count 213 X10^3/uL (150-400)
[2025-05-03 18:01] LABS: Alanine Aminotransferase 28 IU/L (<50); Albumin 4.1 g/dL (3.5-5.0); Albumin Globulin Ratio 1.5 (1.0-2.8); Alkaline Phosphatase 37 U/L (38-126); Blood Urea Nitrogen 19 mg/dL (9-20); Calcium 9.0 mg/dL (8.4-10.2); Carbon Dioxide 23 mmol/L (22-32); Chloride 106 mmol/L (98-107); Estimated Glomerular Filt Rate > 60 mL/min (>60); Globulin 2.7 g/dL (1.7-4.1); Glucose 107 mg/dL (70-99); Sodium 138 mmol/L (137-145); Total Protein 6.8 g/dL (6.3-8.2)
[2025-05-03 18:02] LABS: HEMOLYSIS 81 (0-50); Potassium 4.5 mmol/L (3.4-5.1)
[2025-05-03 20:28] VITALS: BP 169/75; PULSE 51; RESP 18; O2SAT 97
[2025-05-03 21:24] LABS: Bilirubin Urine UA 1+ (NEGATIVE); Glucose Urine UA NEGATIVE (Negative); Ketones Urine UA NEGATIVE (NEGATIVE); Leukocyte Esterase Urine UA TRACE (NEGATIVE); Nitrite Urine UA NEGATIVE (Negative); Occult Blood Urine UA 3+ (Negative); Protein Urine UA 3+ (Negative); Specific Gravity Urine UA 1.015 (1.000-1.035); Urobilinogen Urine UA 1.0 E.U./dL (0.2); pH Urine UA 7.5 (4.5-8.0)
[2025-05-03 21:27] LABS: Appearance Urine UA CLOUDY; Color Urine UA RED
[2025-05-03 21:31] LABS: Culture Indicated Urine Specimen Cultured
[2025-05-03 21:32] LABS: Ictotest Urine Negative (Negative)
[2025-05-03 23:14] VITALS: BP 176/77; PULSE 58; RESP 18; O2SAT 96
--- NOTE | 2025-05-03 23:16 | PC.NURSE ---
pt moved to [address] Monique in to explain results and dispo pt
== END 2025-05-03 23:32 | disposition home or self-care (01) ==
PROVIDERS: Emergency Provider Emergency Medicine; PCP Internal Medicine
DX: R31.0 Gross hematuria (principal); R93.41 Abnormal radiologic findings on diagnostic imaging of renal pelvis, ureter, or bladder
CPT/HCPCS: 36415; 74176; 80053; 81001; 85025; 87086; 99283; 99284

== ENCOUNTER 2025-05-05 16:49 | Emergency (ER) | payer MEDICARE, OTHER, SELFPAY ==
[2025-05-05 16:53] VITALS: BP 164/70; PULSE 64; RESP 15; TEMP 36.4; O2SAT 97; BMI 26.6
[2025-05-05 17:06] VITALS: PULSE 70; TEMP 37; O2SAT 97
[2025-05-05 17:08] VITALS: BP 170/73; PULSE 67; O2SAT 97
[2025-05-05] MEDS: LIDOCAINE 2% (GLYDO) 6 ML GEL TOP (17:57)
[2025-05-05 18:08] LABS: Appearance Urine UA CLOUDY; Bilirubin Urine UA NEGATIVE (NEGATIVE); Color Urine UA RED; Glucose Urine UA NEGATIVE (Negative); Ketones Urine UA NEGATIVE (NEGATIVE); Leukocyte Esterase Urine UA TRACE (NEGATIVE); Nitrite Urine UA NEGATIVE (Negative); Occult Blood Urine UA 3+ (Negative); Protein Urine UA 2+ (Negative); Specific Gravity Urine UA 1.010 (1.000-1.035); Urobilinogen Urine UA 0.2 E.U./dL (0.2); pH Urine UA 7.0 (4.5-8.0)
[2025-05-05 18:18] LABS: Culture Indicated Urine Specimen Cultured
--- NOTE | 2025-05-05 18:46 | ED.GENADULT ---
HPI - General Adult General Chief complaint: Urogenital-Male Stated complaint: Urogenital male (blood in urine) Time Seen by Provider: 05/05/25 17:27 Source: patient Mode of arrival: Ambulatory History of Present Illness HPI narrative: 79-year-old male with history of BPH and prior prostate surgery 5 years ago, takes aspirin but no other blood thinner medications, recent week of gross hematuria symptoms awaiting outpatient Urology consultation for likely cystoscopy, 04/30/2025 had clinic urine culture negative, 05/03/2025 seen here in ED with gross hematuria symptoms having CT abdomen and pelvis showing bladder clot versus mass but no obstructive symptoms at that time, not taking antibiotics, awaiting cystoscopy appointment with Urology Dr. Campbell. This evening had sensation of inability to urinate, some small amounts of clot and blood. No trauma. No existing urinary catheter. No fevers or chills. No nausea or vomiting. No back or flank pain. Related Data Home Medications ?Medication ?Instructions ?Recorded ?Confirmed aspirin 81 mg tablet 81 mg PO DAILY 03/06/25 05/01/25 Previous Rx's ?Medication ?Instructions ?Recorded amlodipine 10 mg tablet 10 mg PO DAILY #90 tabs 09/11/24 atorvastatin 40 mg tablet 40 mg PO DAILY #90 tabs 09/11/24 eplerenone 25 mg tablet 25 mg PO DAILY #90 tabs 09/11/24 losartan 100 mg tablet 100 mg PO DAILY #90 tabs 09/11/24 minoxidil 10 mg tablet 10 mg PO BID #180 tabs 09/11/24 carvedilol 6.25 mg tablet 6.25 mg PO BID #180 tabs 03/06/25 Allergies Allergy/AdvReac Type Severity Reaction Status Date / Time atenolol AdvReac Intermediate Depression Verified 05/05/25 16:53 spironolactone AdvReac Intermediate Verified 05/05/25 16:53 Patient History Medical History Onychomycosis Generalized anxiety disorder Insomnia Hearing loss Retinal detachment (~2014) Obesity (BMI 30.0-34.9) 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) Mixed hyperlipidemia Essential hypertension (~1975) Acute retention of urine Surgical History Anesthesia History of prostate surgery (~2017) History of tonsillectomy Family History Father History of heart disease Hypertension Mother Cancer Brother Alzheimer's disease Social History details: (Amanda), 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 HEAD: Atraumatic. Normocephalic. EYES: Pupils equal round and reactive. Extraocular motions intact. No scleral icterus. No injection or drainage. ENT: Nose without bleeding, purulent drainage. Throat without erythema, tonsillar hypertrophy or exudate. Airway patent. NECK: Trachea midline. Non tender CARDIOVASCULAR: Regular rate and rhythm without murmurs, gallops, or rubs. RESPIRATORY: Clear to auscultation. Breath sounds equal bilaterally. No wheezes, rales, or rhonchi. GASTROINTESTINAL: Abdomen soft, non-tender, nondistended. EXTREMITIES: No edema or joint tenderness. : Trans urethral urinary catheter in place, some dark red blood in urinary collection bag, new urine in tubing looks clear. BACK: Nontender without deformity or crepitance. No flank tenderness. NEURO: AOx3. Motor functions grossly nonfocal. SKIN: No rash or erythema of visible areas Initial Vital Signs Initial Vital Signs: Vital Signs Temperature 97.6 F 05/05/25 16:53 Pulse Rate 64 05/05/25 16:53 Respiratory Rate 15 05/05/25 16:53 Blood Pressure 164/70 H 05/05/25 16:53 Pulse Oximetry 97 05/05/25 16:53 Oxygen Delivery Method Room Air 05/05/25 16:53 Course Orders Ordered: ED Orders 05/05/25 17:50 UA Complete [Urinalysis and Microscopic] Stat Urine Culture Stat 05/05/25 19:45 CBC Auto Diff [Complete Blood Count AUTO DIFF] Stat CMP [Comprehensive Metabolic Panel] Stat Lactate (Lactic Acid) Stat Prothrombin Time INR Stat Discontinued Medications Lidocaine HCl (Lidocaine 2% (Glydo) 6 Ml Gel) 6 ml TOP NOW ONE Stop: 05/05/25 17:33 Last Admin: 05/05/25 17:57 Dose: 6 ml Documented By: [facility] Vital Signs Vital signs: Vital Signs - 8 hr 05/05/25 16:53 05/05/25 17:06 05/05/25 17:08 Temperature 97.6 F 98.6 F Pulse Rate 64 70 67 Respiratory Rate 15 Blood Pressure 164/70 H Pulse Oximetry 97 97 97 Oxygen Delivery Method Room Air 05/05/25 17:08 05/05/25 18:54 05/05/25 18:55 Temperature 99.3 F Pulse Rate 60 60 Respiratory Rate Blood Pressure 170/73 H Pulse Oximetry 97 96 Oxygen Delivery Method 05/05/25 18:55 Temperature Pulse Rate Respiratory Rate Blood Pressure 152/66 H Pulse Oximetry Oxygen Delivery Method Medical Decision Making Lab Data Lab results reviewed: Yes I reviewed the patient's lab results. Lab results narrative: Urinalysis shows hematuria, without bacteria or inflammatory cells, urine culture by protocol. 05/05/25 19:45 05/05/25 19:45 Labs: Lab Results 05/05/25 05/05/25 Range/Units 17:50 19:45 WBC 10.2 (4.5-11.0) X10^3/uL RBC 4.14 L (4.5-5.9) X10^6/uL Hgb 12.3 L (13.5-17.5) g/dL Hct 36.4 L (41-53) % MCV 87.8 (80-100) fL MCH 29.8 (26-34) PG MCHC 33.9 (30-36) % RDW 14.7 (11.6-14.8) % Plt Count 218 (150-400) X10^3/uL Neut % (Auto) 54.9 (50-75) % Lymph % (Auto) 30.8 (25-40) % [place] % (Auto) 9.2 (3-14) % Eos % (Auto) 3.8 (2-4) % Baso % (Auto) 1.3 (0-2) % Neut # (Auto) 5600 (4261-6500) /uL Lymph # (Auto) 3100 (7106-4472) /uL [place] # (Auto) 900 (0-900) /uL Eos # (Auto) 400 (0-450) /uL Baso # (Auto) 100 (0-100) /uL PT 11.6 (9.4-12.5) SECONDS INR 1.0 (0.9-1.3) Sodium 135 L (137-145) mmol/L Potassium 4.3 (3.4-5.1) mmol/L Chloride 105 (98-107) mmol/L Carbon Dioxide 22 (22-32) mmol/L BUN 24 H (9-20) mg/dL Creatinine 0.85 (0.66-1.25) mg/dL Estimated GFR > 60 (>60) mL/min BUN/Creatinine Ratio 28.2 H (6-22) Glucose 106 H (70-99) mg/dL Lactate 0.8 (0.7-2.1) mmol/L Calcium 9.2 (8.4-10.2) mg/dL Total Bilirubin 0.3 (0.2-1.3) mg/dL AST 26 (17-59) IU/L ALT 25 (<50) IU/L Alkaline Phosphatase 47 (38-126) U/L Total Protein 6.6 (6.3-8.2) g/dL Albumin 4.1 (3.5-5.0) g/dL Globulin 2.5 (1.7-4.1) g/dL Albumin/Globulin Ratio 1.6 (1.0-2.8) Urine Color Red Urine Appearance Cloudy Urine pH 7.0 (4.5-8.0) Ur Specific [place] 1.010 (1.000-1.035) Urine Protein 2+ H (Negative) Urine Glucose (UA) Negative (Negative) g/dL Urine Ketones Negative (NEGATIVE) Urine Occult Blood 3+ H (Negative) Urine Nitrate Negative (Negative) Urine Bilirubin Negative (NEGATIVE) Urine Urobilinogen 0.2 (0.2) E.U./dL Ur Leukocyte Esterase Trace H (NEGATIVE) Urine RBC >100/hpf H (0-5/HPF) Urine WBC 0-1/hpf (0-5/HPF) Ur Squamous Epith Cells None seen (0-5/HPF) Urine Bacteria Occasional (0-1) (None) Urine Mucus 1+ H (Negative) Ur Culture Indicated? Specimen cultured Vol Urine Centrifuged 10ml (spun) MDM Narrative Medical decision making narrative: 79-year-old male with gross hematuria symptoms, CT abdomen and pelvis showed bladder mass versus clot 3 days ago, awaiting outpatient cystoscopy evaluation by local urologist. Today having difficulty urinating, and more gross hematuria. [place] catheter was placed, initial bloody urine that seemed to clear. Patient feels better and we would like the catheter removed. Patient informed he may have additional clot in there that could clot and obstruct again, but he we would like the catheter taken out. Catheter removal for patient request. We discussed repeat imaging, declined. We discussed labs, declined. He will contact his PCP Dr. Hallman tomorrow to help facilitate timely local urology follow up for anticipated cystoscopy evaluation. Hold oral aspirin for now. Catheter removed per patient request. Return precautions discussed. Discharge Plan Departure Patient Disposition: Home Clinical Impression: Acute urinary retention, Gross hematuria Activity Restrictions/Additional Instructions: Recurrent episodes of gross hematuria, awaiting outpatient local urology follow up for anticipated cystoscopy. Recent evaluation here 05/03/[address] abdomen and pelvis showing bladder clot versus mass at that time. Tonight with clot and bleeding and sensation of inability to urinate. [place] catheter placed, with initial bloody fluid that cleared. You wanted the catheter removed, after options were discussed, could leave catheter in place until seen by Urology hopefully later this week, you preferred to have it removed. If you have residual clot in the bladder it could obstruct again, if that is the cause of your recent symptoms tonight. Contact your provider Tuesday during regular hours to expedite local urology follow up. Current urologist on-call tinnitus in the [place] area. Though you are anticipating follow up with local urologists Dr. Campbell per referral from your PCP Dr. Hallman. Consider calling the office of Dr. Campbell tomorrow morning as well. Consider holding further aspirin pending further workup of your bloody urine symptoms. Return to this/nearest emergency department for any change worsening symptoms or any concerns prior. Prescriptions: No Action amlodipine 10 mg tablet 10 mg PO DAILY Qty: 90 3RF atorvastatin 40 mg tablet 40 mg PO DAILY Qty: 90 3RF eplerenone 25 mg tablet 25 mg PO DAILY Qty: 90 3RF losartan 100 mg tablet 100 mg PO DAILY Qty: 90 3RF minoxidil 10 mg tablet 10 mg PO BID Qty: 180 3RF aspirin 81 mg tablet 81 mg PO DAILY carvedilol 6.25 mg tablet 6.25 mg PO BID Qty: 180 3RF Rx Instructions: must administer with a meal/food Referrals: Rede Campbell DO [Physician, Urology] Ezio Hallman MD [Primary Care Provider, Internal Medicine] Stand Alone Forms: Patient Portal/API
[2025-05-05 18:54] VITALS: PULSE 60; TEMP 37.4; O2SAT 97
[2025-05-05 18:55] VITALS: BP 152/66; PULSE 60; O2SAT 96
[2025-05-05 19:56] LABS: Add Manual Diff / Slide Review NO; Hematocrit 36.4 % (41-53); Hemoglobin 12.3 g/dL (13.5-17.5); Lymphocytes Absolute Auto 3100 /uL (1100-4500); Mean Corpuscular HGB Conc 33.9 % (30-36); Mean Corpuscular Hemoglobin 29.8 PG (26-34); Mean Corpuscular Volume 87.8 fL (80-100); Platelet Count 218 X10^3/uL (150-400)
[2025-05-05 20:01] LABS: INR 1.0 (0.9-1.3); Prothrombin Time 11.6 SECONDS (9.4-12.5)
[2025-05-05 20:04] LABS: Lactate (Lactic Acid) 0.8 mmol/L (0.7-2.1)
[2025-05-05 20:05] LABS: Alanine Aminotransferase 25 IU/L (<50); Albumin 4.1 g/dL (3.5-5.0); Albumin Globulin Ratio 1.6 (1.0-2.8); Alkaline Phosphatase 47 U/L (38-126); Blood Urea Nitrogen 24 mg/dL (9-20); Calcium 9.2 mg/dL (8.4-10.2); Carbon Dioxide 22 mmol/L (22-32); Chloride 105 mmol/L (98-107); Estimated Glomerular Filt Rate > 60 mL/min (>60); Globulin 2.5 g/dL (1.7-4.1); Glucose 106 mg/dL (70-99); HEMOLYSIS < 15 (0-50); Potassium 4.3 mmol/L (3.4-5.1); Sodium 135 mmol/L (137-145); Total Protein 6.6 g/dL (6.3-8.2)
== END 2025-05-05 20:00 | disposition home or self-care (01) ==
PROVIDERS: Emergency Medicine; Emergency Provider Emergency Medicine; PCP Internal Medicine
DX: R31.0 Gross hematuria (principal); R33.9 Retention of urine, unspecified
CPT/HCPCS: 51701; 80053; 81001; 83605; 85025; 85610; 87086; 99283

== ENCOUNTER 2025-06-07 07:52 | Day surgery (SDC) | payer MEDICARE, OTHER, SELFPAY ==
[2025-05-31 10:41] VITALS: BMI 28.8
[2025-06-07] VITALS (9 sets, daily range): BP systolic 126–160; BP diastolic 55–73; PULSE 56–66; RESP 12–20; TEMP 36.4–36.6; O2SAT 94–100
--- NOTE | 2025-06-07 | PATH_ITS ---
[facility] Accession Number: [id number] No. of containers..02 Tissue . 01 Material submitted: . PART A: bladder - POSTERIOR BLADDER MASS. Modifiers: posterior PART B: body - RIGHT LATERAL BLADDER WALL . 01 Clinical history: . 1-[address] RIVAS, SITE B IS RIGHT LATERAL BLADDER WALL /RR . 01 Diagnosis: A. POSTERIOR BLADDER MASS, TRANSURETHRAL BLADDER TUMOR RESECTION: Urothelial carcinoma, high-grade, involving the lamina propria. Tumor configuration: Papillary morphology. Tumor invades into the subepithelial connective tissue/lamina propria. Negative for lymphovascular invasion. Muscularis propria is present, small fragments, negative for tumor involvement; please see microscopic description. Background extensive necrosis. Pathologic staging: pT1 (lamina propria involvement). . B. RIGHT LATERAL BLADDER WALL, BIOPSY: Benign prostatic and urothelial tissue; please see microscopic description. Negative for in situ or invasive carcinoma. [facility] 06/19/2025 1315 Local . 01 Comment: Selected slides (A2, A6, A11, A12) and associated immunohistochemistry and slides B1 and associated immunohistochemistry are also reviewed by Dr.Sandra Avery who agrees with the interpretation. . Results were called to ANA Arciniega, on 06/19/2025 at 10:15 am. . 01 Electronically signed: . John Mendez MD, Pathologist NPI- [id number] . 01 Gross description: . A. Received in formalin with two patient identifiers and posterior bladder, is a 5.5 x 5.5 x 2.8 cm aggregate of wynn-brown, friable tissue fragments. Entirely submitted in cassettes A1-A15. B. Received in formalin with two patient identifiers and bladder versus prostate, is one less than 1 gram, 1.0 x 0.5 x 0.4 cm wynn tissue fragment. Entirely submitted in cassette B1. ([id number]) /[facility] 06/12/2025 1108 Local . 01 Microscopic: . A. Microscopic examination of the bladder mass reveals multiple fragments of high-grade urothelial carcinoma with papillary morphology, invading the lamina propria, without involvement of the small fragments of muscularis propria. . There are associated areas of hyperplastic appearing muscularis mucosae present. The scant fragments of muscularis propria do not show evidence of definite invasion. There is background extensive tumor necrosis. . Pathologic staging is pT1. . Given the clinical concern of bladder mass (bladder versus prostate origin), PSA immunostain is peformed (blocks A6 and A12) and is negative. Negative PSA along with positive SUSANNA-3 (performed on blocks A6 and A12) supports urothelial origin and argues against prostatic origin. In addition, smooth muscle actin (performed on blocks A6, A11, and A12) highlights the presence of hyperplastic bundles of muscularis mucosae and argues against involvement of the scant fragments of thick muscle bundles consistent with muscularis propria. Therefore, arguing against definite involvement of muscularis propria. . Clinical and correlation with cystoscopic findings is recommended. . Extensive necrosis obscures morphologic evaluation. . B. Initial and multiple deeper levels have been examined to evaluate for the presence of malignancy. There is mixed urothelial and prostatic tissue with mild chronic inflammation. Given the focal areas of cautery artifact that obscures evaluation, deeper levels and immunostains are performed with the following results: PSA highlights the prostatic glands, SUSANNA-3 highlights urothelial mucosa, CK20 highlights rare focal umbrella cells (negative for increased or block type expression), and the proliferation marker Ki-67 is low, limited to the basal layer. . These immunohistochemical results along with the morphology support the diagnosis of benign prostatic/urothelial tissue and argues against in situ or invasive malignancy. . . * This test was developed and the performance characteristics were validated by [employer]. It has not been cleared or approved by the U.S. Food and Drug Administration. . 01 Pathologist provided ICD-10: C67.9 . 01 CPT . 711448, 491563, U76113, T92103 Performed at: [address] [facility], [place], [place] [id number] MD Indra Wick MD Phone: [phone]
[2025-06-07] MEDS: LACTATED RINGERS 1,000 ML 21 ML IV ×2 (08:32→10:35)
[2025-06-07] MEDS: ACETAMINOPHEN 325 MG TABLET 975 MG PO (08:35)
--- NOTE | 2025-06-07 08:59 | PM.PREOP ---
Pre-operative Note COVID-19 COVID-19 status: Not tested Interval Note History & Physical reviewed/Exam performed by Physician: Yes Changes to H&P: No
--- NOTE | 2025-06-07 09:17 | SUR.OPER ---
Lithotomy on padded OR bed, head on pillow, arms secured on padded arm boards at <90 degrees abduction. Legs secured in padded yellow fins stirrups.
--- NOTE | 2025-06-07 09:44 | SUR.OPER ---
Lithotomy on padded OR bed, head on pillow, arms secured on padded arm boards at <90 degrees abduction. Legs secured in padded yellow fins stirrups.
--- NOTE | 2025-06-07 09:54 | DI.RAD.S_ITS ---
PROCEDURE: XR ABDOMEN 1V INDICATIONS: RETROGRADES BILATERAL, CT KUB identifying multiple highly suspicious bladder wall nodules suspicious for urothelial malignancy. TECHNIQUE: 6 total bilateral intra-operative images acquired by the Urology service. COMPARISON: [facility], CT, CT KIDNEY URETER BLADDER (KUB), 05/03/2025, 17:38. FINDINGS: No definite malignant-appearing urothelial nodule seen within the collecting system and ureters of each kidney. Right-sided distal ureteral smoothly marginated fusiform narrowings are seen which most likely represent peristaltic ureteral contractions. The bladder is not included on this study. IMPRESSION: Nodules within the bladder lumen seen by CT KUB study 05/03/25 are considered likely malignant from review of that examination but are not included on this retrograde study. No collecting system or ureteral malignant-appearing mass is identified bilaterally. Please note that contrast-enhanced staging CT of the abdomen and pelvis has not yet been obtained. Chest CT scanning could be included during follow-up CT also. Dictated by: Papo Brady M.D. on 06/07/2025 at 13:34 Approved by: Papo Brady M.D. on 06/07/2025 at 13:43
[2025-06-07] MEDS: LIDOCAINE 2% (GLYDO) 6 ML GEL TOP (10:01)
--- NOTE | 2025-06-07 11:05 | PM.OP.1 ---
Operative Date/Time/Diagnoses Date of procedure: 06/07/25 Time of procedure: 10:00 Pre-op diagnosis: Bladder mass Post-op diagnosis: same Procedure & Clinicians Procedure: Cystoscopy Transurethral resection of bladder tumor, >5cm in greatest diameter Bilateral retrograde ureteropyelogram Intraoperative interpretation of fluoroscopic images, total time < 1 hour Same procedure(s) as scheduled: Yes Indications: 79 y/o M noted to have a 2cm and 5cm bladder mass concerning for urothelial cell carcinoma in the setting of gross hematuria. Discussed the need to obtain Cardiac clearance prior to any procedures (this has been completed by his PCP and he has been holding his baby ASA for a few weeks now). Discussed that I would recommend he proceed with a TURBT and bilateral retrograde ureteropyelograms given that his CT was non-contrast. Discussed risks of the procedure to include but not limited to pain, bleeding, infection, injury to urethra/prostate/bladder/ureteral orifice, need for a ureteral stent, prolonged catheterization, and possible open repair of ureteral and/or bladder injury. Surgeon: Reed Campbell Assisted?: No Anesthesia Type: General Operative Notes Findings: Unremarkable bilateral retrograde ureteropyelogram, 5cm mass along posterior bladder wall, 2cm mass along right lateral bladder wall, bladder neck mass vs intravesical median lobe Closure Type: not applicable Specimen(s): other (bladder mass, bladder vs prostate) Applied: catheter Estimated Blood Loss (mL): 5 Blood products transfused: none Procedure in detail: Patient was identified in the preoperative holding area and consent confirmed. He was then brought to the operating room where general anesthesia was induced. He was then placed in the low lithotomy position. He was then prepped and draped in the usual sterile fashion. A surgical timeout was conducted and all were in agreement. Access to the bladder was obtained via a 21Fr cystoscope. Complete cystoscopy was then performed using a 30 and 70 degree lens. A 5cm papillary mass was noted along the posterior bladder wall as well as a 2cm mass along the right lateral bladder wall. Bilateral ureteral orifices were visualized and noted to be orthotopic in nature. No other concerning lesions were appreciated. The left ureteral orifice was then cannulated using a 5Fr ureteral catheter and a retrograde ureteropyelogram was performed which noted no filling defects. This was repeated in similar fashion for the right renal collecting system, also unremarkable. The cystoscope was then removed and his urethral meatus was serially dilated using [place] sounds from 22Fr to 30Fr. The 26Fr resectoscope with visual obturator was then advanced through his urethra and into his bladder. The working element with Gyrus loop was then assembled and passed through the resectoscope and into the bladder. The masses were then resected to their base. The resection bed was then fulgurated. All bladder specimens were then manually evacuated from the bladder using the resectoscope. Hemostasis was evaluated and noted to be excellent at case end. A 18Fr watters was then inserted into the bladder at case end, 10cc of sterile water was used for balloon insufflation. Anesthesia was reversed, he was extubated in the OR and transferred to the PACU in stable condition for recovery. Complications: none Post-operative Condition: stable Disposition: PACU Plan for aftercare: Discharge home from PACU. Will return to Urology clinic on 10 Jun 2025 for a voiding trial.
[2025-06-07] MEDS: PHENAZOPYRIDINE 100 MG TABLET 200 MG PO (11:17)
== END 2025-06-07 12:10 | disposition home or self-care (01) ==
PROVIDERS: PCP Internal Medicine; Referring Provider Urology; Visit Provider Urology
PROC: 0TBB8ZZ Excision of Bladder, Via Natural or Artificial Opening Endoscopic (ICD-10-PCS; CPT 52235; principal; 2025-06-07 09:15)
DX: C67.9 Malignant neoplasm of bladder, unspecified (principal); Z87.891 Personal history of nicotine dependence
CPT/HCPCS: 52235; 74018; 74420; 76000; J0689; J1100; J2405; J2704; J3010; J3490; J7120; Q9967

== ENCOUNTER → 2025-06-10 15:05 | Outpatient (CLI) | payer MEDICARE, OTHER, SELFPAY | PROVIDERS: PCP Internal Medicine; Visit Provider Urology | DX: N40.1 Benign prostatic hyperplasia with lower urinary tract symptoms (principal); N13.8 Other obstructive and reflux uropathy; N32.89 Other specified disorders of bladder | CPT/HCPCS: 87086 ==